=== PATIENT | female | born 1955 | race Caucasian/White ===

== ENCOUNTER → 2016-12-16 | Outpatient (CLI) | payer OTHER ==
--- NOTE | 2016-12-17 07:26 | MM ---
Reason for exam: screening (asymptomatic). Last mammogram was performed 1 year and 5 months ago. History: Patient is postmenopausal, has history of ovarian cancer at age 36, and has history of other cancer at age 26. Physical Findings: A clinical breast exam by your physician is recommended on an annual basis and results should be correlated with mammographic findings. MG Screening Mammo w CAD Bilateral CC and MLO view(s) were taken. Prior study comparison: July 31, 2015, right breast MG 3d diag mammo w/cad RT. January 08, 2015, right breast MG work up mamm w CAD RT. The breast tissue is heterogeneously dense. This may lower the sensitivity of mammography. There is chronic nodularity in the left breast. No significant changes when compared with prior studies. ASSESSMENT: Benign, BI-RAD 2 RECOMMENDATION: Routine screening mammogram of both breasts in 1 year.
== END | disposition home or self-care (01) ==
LOC: RADMAMWWP 16:10
PROVIDERS: ATTEND Family Medicine
DX: Z12.31 Encounter for screening mammogram for malignant neoplasm of breast (principal)

== ENCOUNTER 2017-05-29 12:19 | Emergency (ER) | payer OTHER ==
--- NOTE | 2017-05-29 13:26 | ED ---
General Adult HPI - General Chief complaint: Dizziness Stated complaint: Dizziness Time Seen by Provider: 05/29/17 12:35 Source: patient, RN notes reviewed Mode of arrival: wheelchair Limitations: no limitations - History of Present Illness Initial comments: This is a 62-year-old female presents emergency Department complaining of dizziness for the last 3 days. Patient states first it wasn't the worst and it is slowly been improving. Patient states went to urgent care with a gave her amoxicillin and Antivert. Patient states the Antivert seems to be helping but she still dizzy and she is concerned about associated emergency department. Patient denies any headache patient denies any visual disorders patient denies any speech symptoms. Patient denies any numbness or weakness. Patient denies any chest pain palpitations difficulty breathing shortness of breath. Patient denies any recent fever chills or cough per patient denies any ear pain. Patient denies any decreased hearing or ringing in the ears that's newly acquired. Patient denies any recent injury or trauma. - Related Data Home Medications Medication Instructions Recorded Confirmed Amoxicillin 875 mg PO Q12HR 05/29/17 05/29/17 Meclizine [Antivert] 25 mg PO TID PRN 05/29/17 05/29/17 Naproxen [Naprosyn] 500 mg PO Q12HR PRN 05/29/17 05/29/17 Pravastatin Sodium [Pravachol] 20 mg PO HS 05/29/17 05/29/17 Ranitidine HCl [Zantac] 150 mg PO HS 05/29/17 05/29/17 Allergies Allergy/AdvReac Type Severity Reaction Status Date / Time OTC Cough Medication Allergy Rash/Hives Uncoded 05/29/17 12:39 Review of Systems ROS Statement: Those systems with pertinent positive or pertinent negative responses have been documented in the HPI. ROS Other: All systems not noted in ROS Statement are negative. Past Medical History Past Medical History: Hyperlipidemia History of Any Multi-Drug Resistant Organisms: None Reported Past Surgical History: Section, Hysterectomy, Tubal Ligation Additional Past Surgical History / Comment(s): bladder suspension Past Anesthesia/Blood Transfusion Reactions: No Reported Reaction Past Psychological History: No Psychological Hx Reported Smoking Status: Current every day smoker Past Alcohol Use History: None Reported Past Drug Use History: None Reported General Exam - General Exam Comments Initial Comments: GENERAL: Patient is well-developed and well-nourished. Patient is nontoxic and well- hydrated and is in mild distress. ENT: Neck is soft and supple. No significant lymphadenopathy is noted. Oropharynx is clear. Moist mucous membranes. Neck has full range of motion without eliciting any pain. Left ear is cerumen impacted EYES: The sclera were anicteric and conjunctiva were pink and moist. Extraocular movements were intact and pupils were equal round and reactive to light. Eyelids were unremarkable. PULMONARY: Unlabored respirations. Good breath sounds bilaterally. No audible rales rhonchi or wheezing was noted. CARDIOVASCULAR: There is a regular rate and rhythm without any murmurs gallops or rubs. ABDOMEN: Soft and nontender with normal bowel sounds. No palpable organomegaly was noted. There is no palpable pulsatile mass. SKIN: Skin is clear with no lesions or rashes and otherwise unremarkable. NEUROLOGIC: Patient is alert and oriented x3. Cranial nerves II through XII are grossly intact. Motor and sensory are also intact. Normal speech, volume and content. Symmetrical smile. MUSCULOSKELETAL: Normal extremities with adequate strength and full range of motion. No lower extremity swelling or edema. No calf tenderness. LYMPHATICS: No significant lymphadenopathy is noted PSYCHIATRIC: Normal psychiatric evaluation. Limitations: no limitations Course Vital Signs 05/29/17 12:35 Temperature 98.1 F Pulse Rate 66 Respiratory 18 Rate Blood Pressure 134/73 O2 Sat by Pulse 94 L Oximetry Medical Decision Making - Medical Decision Making EKG shows normal sinus rhythm at 60 bpm MD interval 152 QRS is 72 QT interval 388 QTC is 412 per patient's EKG shows no ST segment elevation or ST segment depression there are no T-wave abdomen is noted. CT brain shows no acute abnormality. Chest x-ray shows no acute abnormality. - Lab Data Result diagrams: 05/29/17 13:35 05/29/17 13:35 Lab Results 05/29/17 05/29/17 05/29/17 Range/Units 13:35 13:35 13:35 WBC 7.8 (3.8-10.6) k/uL RBC 4.77 (3.80-5.40) m/uL Hgb 14.7 (11.4-16.0) gm/dL Hct 44.0 (34.0-46.0) % MCV 92.2 (80.0-100.0) fL MCH 30.9 (25.0-35.0) pg MCHC 33.5 (31.0-37.0) g/dL RDW 13.9 (11.5-15.5) % Plt Count 268 (150-450) k/uL Neutrophils % 58 % Lymphocytes % 32 % Monocytes % 6 % Eosinophils % 2 % Basophils % 1 % Neutrophils # 4.6 (1.3-7.7) k/uL Lymphocytes # 2.5 (1.0-4.8) k/uL Monocytes # 0.4 (0-1.0) k/uL Eosinophils # 0.2 (0-0.7) k/uL Basophils # 0.1 (0-0.2) k/uL PT (9.0-12.0) sec INR (<1.2) APTT (22.0-30.0) sec Sodium 142 (137-145) mmol/L Potassium 4.2 (3.5-5.1) mmol/L Chloride 108 H (98-107) mmol/L Carbon Dioxide 22 (22-30) mmol/L Anion Gap 12 mmol/L BUN 15 (7-17) mg/dL Creatinine 0.64 (0.52-1.04) mg/dL Est GFR (MDRD) Af Amer >60 (>60 ml/min/1.73 sqM) Est GFR (MDRD) Non-Af >60 (>60 ml/min/1.73 sqM) Glucose 89 (74-99) mg/dL Calcium 9.8 (8.4-10.2) mg/dL Magnesium 2.2 (1.6-2.3) mg/dL Total Bilirubin 0.4 (0.2-1.3) mg/dL AST 19 (14-36) U/L ALT 34 (9-52) U/L Alkaline Phosphatase 107 (38-126) U/L Total Creatine Kinase 76 (30-135) U/L CK-MB (CK-2) 0.4 (0.0-2.4) ng/mL CK-MB (CK-2) Rel Index 0.5 Troponin I <0.012 (0.000-0.034) ng/mL Total Protein 8.2 (6.3-8.2) g/dL Albumin 4.6 (3.5-5.0) g/dL 05/29/17 Range/Units 13:35 WBC (3.8-10.6) k/uL RBC (3.80-5.40) m/uL Hgb (11.4-16.0) gm/dL Hct (34.0-46.0) % MCV (80.0-100.0) fL MCH (25.0-35.0) pg MCHC (31.0-37.0) g/dL RDW (11.5-15.5) % Plt Count (150-450) k/uL Neutrophils % % Lymphocytes % % Monocytes % % Eosinophils % % Basophils % % Neutrophils # (1.3-7.7) k/uL Lymphocytes # (1.0-4.8) k/uL Monocytes # (0-1.0) k/uL Eosinophils # (0-0.7) k/uL Basophils # (0-0.2) k/uL PT 10.6 (9.0-12.0) sec INR 1.0 (<1.2) APTT 26.2 (22.0-30.0) sec Sodium (137-145) mmol/L Potassium (3.5-5.1) mmol/L Chloride (98-107) mmol/L Carbon Dioxide (22-30) mmol/L Anion Gap mmol/L BUN (7-17) mg/dL Creatinine (0.52-1.04) mg/dL Est GFR (MDRD) Af Amer (>60 ml/min/1.73 sqM) Est GFR (MDRD) Non-Af (>60 ml/min/1.73 sqM) Glucose (74-99) mg/dL Calcium (8.4-10.2) mg/dL Magnesium (1.6-2.3) mg/dL Total Bilirubin (0.2-1.3) mg/dL AST (14-36) U/L ALT (9-52) U/L Alkaline Phosphatase (38-126) U/L Total Creatine Kinase (30-135) U/L CK-MB (CK-2) (0.0-2.4) ng/mL CK-MB (CK-2) Rel Index Troponin I (0.000-0.034) ng/mL Total Protein (6.3-8.2) g/dL Albumin (3.5-5.0) g/dL Disposition Clinical Impression: Vertigo Disposition: HOME SELF-CARE Condition: Good Instructions: Vertigo (ED) Additional Instructions: Patient should continue taking meclizine as prescribed. Referrals: Samuel Garza DO [Primary Care Provider] - 1-2 days Time of Disposition: 14:46
[2017-05-29 13:45] LABS: Basophils # (A) 0.1 k/uL (0-0.2); Basophils % (A) 1 %; CH 31.1; CHCM 33.9; Eosinophils # (A) 0.2 k/uL (0-0.7); Eosinophils % (A) 2 %; HDW 2.51; HGB 14.7 gm/dL (11.4-16.0); Luc # (Auto) 0.07; Luc % (Auto) 1; Lymphocytes # (A) 2.5 k/uL (1.0-4.8); Lymphocytes % (A) 32 %; MCH 30.9 pg (25.0-35.0); MCHC 33.5 g/dL (31.0-37.0); MCV 92.2 fL (80.0-100.0); Mean Platelet Volume 7.3; Monocytes # (A) 0.4 k/uL (0-1.0); Monocytes % (A) 6 %; Neutrophils # (A) 4.6 k/uL (1.3-7.7); Neutrophils % (A) 58 %; RBC 4.77 m/uL (3.80-5.40); RDW 13.9 % (11.5-15.5); WBC 7.8 k/uL (3.8-10.6)
[2017-05-29 13:55] LABS: Partial Thromboplastin Time 26.2 sec (22.0-30.0); Prothrombin Time 10.6 sec (9.0-12.0)
[2017-05-29 13:56] LABS: ALT 34 U/L (9-52); AST 19 U/L (14-36); Alkaline Phosphatase 107 U/L (38-126); Anion Gap 12 mmol/L; Blood Urea Nitrogen 15 mg/dL (7-17); Calcium 9.8 mg/dL (8.4-10.2); Carbon Dioxide 22 mmol/L (22-30); Chloride 108 mmol/L (98-107); Glucose 89 mg/dL (74-99); Magnesium 2.2 mg/dL (1.6-2.3); Non-African American GFR(MDRD) >60 (>60 ml/min/1.73 sqM); Potassium 4.2 mmol/L (3.5-5.1); Sodium 142 mmol/L (137-145); Total Bilirubin 0.4 mg/dL (0.2-1.3); Total Protein 8.2 g/dL (6.3-8.2)
--- NOTE | 2017-05-29 14:05 | CT ---
EXAMINATION TYPE: CT brain wo con DATE OF EXAM: 05/29/2017 COMPARISON: NONE HISTORY: drowsy feeling x [address] DLP: 995.5 mGycm Automated exposure control for dose reduction was used. FINDINGS: Central structures are midline. There is no evidence of hydrocephalus. No acute focal lesion, mass ef fect or midline shift is seen. I do not see evidence of intracranial blood. Visualized portions of the paranasal sinuses and mastoids are clear. IMPRESSION: NO ACUTE INTRACRANIAL ABNORMALITY.
[2017-05-29 14:10] LABS: Creatine Kinase 76 U/L (30-135)
--- NOTE | 2017-05-29 14:21 | XR ---
EXAMINATION TYPE: XR chest 2V DATE OF EXAM: 05/29/2017 COMPARISON: 03/18/2016 HISTORY: Dizziness TECHNIQUE: Frontal and lateral views of the chest are obtained. FINDINGS: There is no heart failure nor confluent pneumonic infiltrate. There is slight coarsening o f interstitial markings. There are small linear density at the left lung base. There are chest leads. Heart size is normal. IMPRESSION: Mild pulmonary fibrotic changes. Mild scarring or subsegmental atelectasis at the left l karla base. No significant change compared to old exam.
[2017-05-29 14:23] LABS: Creatine Kinase MB 0.4 ng/mL (0.0-2.4); Troponin I <0.012 ng/mL (0.000-0.034)
[2017-05-29 14:55] VITALS: BP 145/75; PULSE 65; RESP 20; TEMP 98.2
== END 2017-05-29 15:16 | disposition home or self-care (01) ==
LOC: EC 12:19
DX: R42 Dizziness and giddiness (principal); H61.22 Impacted cerumen, left ear; E78.5 Hyperlipidemia, unspecified; F17.200 Nicotine dependence, unspecified, uncomplicated; Z79.899 Other long term (current) drug therapy; Z88.8 Allergy status to other drugs, medicaments and biological substances
CPT/HCPCS: 36415; 70450; 71020; 80053; 82550; 82553; 83735; 84484; 85025; 85610; 85730; 93005; 99284

== ENCOUNTER 2018-01-30 12:58 | Emergency (ER) | payer OTHER ==
[2018-01-30 13:14] VITALS: BP 140/73; PULSE 63; RESP 18; TEMP 98.2
--- NOTE | 2018-01-30 13:56 | ED ---
Lower Extremity Injury HPI - General Chief Complaint: Extremity Injury, Lower Stated Complaint: Knee Pain Time Seen by Provider: 01/30/18 13:16 Source: patient, RN notes reviewed Mode of arrival: wheelchair Limitations: no limitations - History of Present Illness Initial Comments: 63-year-old female presented from for left knee pain. Patient states that she' s had pain slight swelling over the last couple days but states that she injured it a few weeks ago by striking her knee on a table. Patient states that her see him relate this time. Patient denies any fever, chills, redness or rash to her knee. Patient has not seen an orthopedic doctor for this. - Related Data Home Medications Medication Instructions Recorded Confirmed Pravastatin Sodium [Pravachol] 20 mg PO DAILY 05/29/17 01/30/18 Acetaminophen [Tylenol] 325 - 650 mg PO Q4H PRN 01/30/18 01/30/18 Cholecalciferol [Vitamin D3] 1,000 unit PO DAILY 01/30/18 01/30/18 Omeprazole [PriLOSEC] 20 mg PO DAILY 01/30/18 01/30/18 Previous Rx's Medication Instructions Recorded Ibuprofen [Motrin] 600 mg PO Q8HR PRN #30 tab 01/30/18 Allergies Allergy/AdvReac Type Severity Reaction Status Date / Time OTC Cough Medication Allergy Rash/Hives Uncoded 05/29/17 12:39 Review of Systems ROS Statement: Those systems with pertinent positive or pertinent negative responses have been documented in the HPI. ROS Other: All systems not noted in ROS Statement are negative. Past Medical History Past Medical History: GERD/Reflux, Hyperlipidemia History of Any Multi-Drug Resistant Organisms: None Reported Past Surgical History: Section, Hysterectomy, Tubal Ligation Additional Past Surgical History / Comment(s): bladder suspension Past Anesthesia/Blood Transfusion Reactions: No Reported Reaction Past Psychological History: No Psychological Hx Reported Smoking Status: Current every day smoker Past Alcohol Use History: None Reported Past Drug Use History: None Reported General Exam Limitations: no limitations General appearance: alert, in no apparent distress Respiratory exam: Present: normal lung sounds bilaterally. Absent: respiratory distress, wheezes, rales, rhonchi, stridor Cardiovascular Exam: Present: regular rate, normal rhythm, normal heart sounds. Absent: systolic murmur, diastolic murmur, rubs, gallop, clicks Extremities exam: Present: other (Left knee full range of motion there is minimal swelling no warmth no erythema leg is neurovascularly intact there is mild pain with valgus stress, there is no laxity noted to the left knee) Skin exam: Present: warm, dry, intact, normal color. Absent: rash Course Vital Signs 01/30/18 13:11 Temperature 98.2 F Pulse Rate 63 Respiratory 18 Rate Blood Pressure 140/73 O2 Sat by Pulse 95 Oximetry Medical Decision Making - Medical Decision Making 63-year-old female has slight swelling to her knee but she has good range of motion. Patient had x-ray which shows joint effusion. Patient will be wrapped in Edmar wrap and follow-up with orthopedics. Patient given anti-inflammatories. Disposition Clinical Impression: Left knee pain, Effusion of knee joint, left Disposition: HOME SELF-CARE Condition: Stable Instructions: Knee Pain (ED) Additional Instructions: Please return to the Emergency Department if symptoms worsen or any other concerns. Prescriptions: Ibuprofen [Motrin] 600 mg PO Q8HR PRN #30 tab PRN Reason: Pain Is patient prescribed a controlled substance at d/c from ED?: No Referrals: Samuel Garza DO [Primary Care Provider] - 1-2 days Rodrigo Espinoza MD [STAFF PHYSICIAN] - 1-2 days Time of Disposition: 14:33
--- NOTE | 2018-01-30 14:12 | XR ---
EXAMINATION TYPE: XR knee complete LT DATE OF EXAM: 01/30/2018 COMPARISON: NONE HISTORY: None TECHNIQUE: 63 year-old female chronic left knee pain FINDINGS: Mild degenerative spurring in the medial and patellofemoral compartments. There is a small knee joint effusion demonstrated. Extensor mechanism is intact. No acute fracture or dislocation. IMPRESSION: Mild degenerative change medial and patellofemoral compartments. No acute osseous abnormality seen. T here is a small joint effusion. This is nonspecific. If concern for internal derangement or occult os seous injury, MRI can be considered.
== END 2018-01-30 14:40 | disposition home or self-care (01) ==
LOC: EC 12:58
DX: M25.462 Effusion, left knee (principal); M25.562 Pain in left knee; K21.9 Gastro-esophageal reflux disease without esophagitis; E78.5 Hyperlipidemia, unspecified; F17.200 Nicotine dependence, unspecified, uncomplicated; Z79.899 Other long term (current) drug therapy; Z88.8 Allergy status to other drugs, medicaments and biological substances; W22.8XXA Striking against or struck by other objects, initial encounter
CPT/HCPCS: 99283

== ENCOUNTER 2018-09-13 17:28 | Emergency (ER) | payer OTHER ==
[2018-09-13 18:08] VITALS: TEMP 97.9
[2018-09-13] MEDS ORDERED: DIAZEPAM 5 MG/ML 2 ML INJ IVP STA (18:31)
[2018-09-13] MEDS ORDERED: ONDANSETRON 4 MG/2 ML VIAL IVP STA (18:31)
[2018-09-13] MEDS ORDERED: SODIUM CHLORIDE 0.9% 1,000 ML IV STA (18:31)
--- NOTE | 2018-09-13 18:35 | ED ---
Dizziness HPI - General Chief Complaint: Dizziness Stated Complaint: Dizzy Time Seen by Provider: 09/13/18 18:12 Source: patient, family Mode of arrival: ambulatory Limitations: no limitations - History of Present Illness Initial Comments: Patient is a 63-year-old female who presents to the emergency department with complaint of dizziness. Patient states that approximately 2 hours ago she had sudden onset of vertiginous symptoms. She has a history of similar in the past. Her symptoms are worse when she lays flat and moves positions. States that her symptoms are better with rest. She denies any associated headaches, vision changes, unilateral numbness or weakness or paresthesias. She denies any confusion, slurred speech or facial droop. She denies slow onset. Denies chest pain or shortness of breath. No hearing changes. Denies any recent upper respiratory infections. No nasal congestion, sore throat or ear pain. She denies a cough. No history of cardiac disease. No recent head trauma. Denies neck pain. No chiropractic manipulations of the neck. Last time this happened to her she did present to the emergency department and they "cleaned out her ears." - Related Data Home Medications Medication Instructions Recorded Confirmed Omeprazole [PriLOSEC] 20 mg PO DIRECTED 01/30/18 09/13/18 Multivitamin,Therapeutic [Thera] 1 tab PO DAILY 09/13/18 09/13/18 Previous Rx's Medication Instructions Recorded Meclizine [Antivert] 25 mg PO TID PRN #15 tab 09/13/18 Allergies Allergy/AdvReac Type Severity Reaction Status Date / Time OTC Cough Medication Allergy Rash/Hives Uncoded 09/13/18 18:08 Review of Systems ROS Statement: Those systems with pertinent positive or pertinent negative responses have been documented in the HPI. ROS Other: All systems not noted in ROS Statement are negative. Past Medical History Past Medical History: GERD/Reflux, Hyperlipidemia, Thyroid Disorder History of Any Multi-Drug Resistant Organisms: None Reported Past Surgical History: Section, Hysterectomy, Tubal Ligation Additional Past Surgical History / Comment(s): bladder suspension Past Anesthesia/Blood Transfusion Reactions: No Reported Reaction Past Psychological History: No Psychological Hx Reported Smoking Status: Current every day smoker Past Alcohol Use History: None Reported Past Drug Use History: None Reported General Exam Limitations: no limitations General appearance: alert, in no apparent distress Head exam: Present: atraumatic, normocephalic Eye exam: Present: normal appearance, PERRL, EOMI. Absent: scleral icterus, conjunctival injection Pupils: Present: normal accommodation ENT exam: Present: normal exam, normal oropharynx, mucous membranes moist, TM's normal bilaterally, normal external ear exam, other (No cerumen impaction) Neck exam: Present: normal inspection, full ROM. Absent: lymphadenopathy, thyromegaly Respiratory exam: Present: normal lung sounds bilaterally. Absent: respiratory distress, wheezes, rales, rhonchi Cardiovascular Exam: Present: regular rate, normal rhythm, normal heart sounds. Absent: systolic murmur, diastolic murmur, rubs, gallop GI/Abdominal exam: Present: soft, normal bowel sounds. Absent: tenderness, guarding Extremities exam: Present: normal inspection Back exam: Present: normal inspection, full ROM Neurological exam: Present: alert, oriented X3, CN II-XII intact, normal gait, reflexes normal, other (Cranial nerves II through XII are intact. Face is symmetric, tongue is midline, speech is clear. No pronator drift and no truncal ataxia. No dysdiadochokinesia. Finger to nose is symmetric bilaterally without dysmetria. Patient is ambulatory without difficulty with negative Kernig's and negative Brudzinski's. Positive Lluvia-Hallpike). Absent: motor sensory deficit Psychiatric exam: Present: normal affect, normal mood Skin exam: Present: warm, dry, intact Course Vital Signs 09/13/18 09/13/18 18:03 19:57 Temperature 97.9 F Pulse Rate 63 60 Respiratory 16 18 Rate Blood Pressure 155/80 153/72 O2 Sat by Pulse 98 95 Oximetry - Reevaluation(s) Reevaluation #1: The patient was reevaluated and has had improvement in her symptoms. She is requesting to go home. 09/13/18 20:15 EKG Findings - EKG Results: EKG: WNL, sinus rhythm, normal axis, normal QRS Medical Decision Making - Medical Decision Making The patient was seen by myself. She was placed in room 15. She was hooked up to continuous pulse ox and cardiac monitoring. A 12-lead EKG was performed which demonstrated a normal sinus rhythm. We did obtain IV access. The patient was given 5 mg IV of Valium, 1 L bolus of 0.9% normal saline and 4 mg of Zofran IV. I recommended laboratory studies as well as a CT of the patient' s brain. She does not demonstrate any signs of ataxia or focal neurologic deficits at this time and so CT angios of the head and neck are not performed. I also recommended a chest x-ray. Upon return of the results we did discuss with the patient. She is reevaluated and states that she has had improvement in her dizziness. I did discuss the diagnosis, differential diagnosis and treatment options. The patient is requesting a urinalysis to be run. I did send a specimen which demonstrated no signs of infection. She is requesting to go home at this time. The patient will be discharged home and given a prescription for Antivert. She is to take the medications as directed. She needs to follow-up with her primary care physician within 2-4 days. I also provided her with information regarding an ENT as I do feel that she is suffering from peripheral vertigo. I did inform her if she has any new or worsening symptoms that she needs to return to the emergency department. Patient was in agreement. Plan she was discharged in stable condition - Differential Diagnosis BPPV, peripheral vertigo, nausea - Lab Data Result diagrams: 09/13/18 19:08 09/13/18 19:08 Lab Results 09/13/18 09/13/18 09/13/18 Range/Units 19:08 19:08 19:08 WBC 7.2 (3.8-10.6) k/uL RBC 4.41 (3.80-5.40) m/uL Hgb 13.8 (11.4-16.0) gm/dL Hct 40.3 (34.0-46.0) % MCV 91.4 (80.0-100.0) fL MCH 31.2 (25.0-35.0) pg MCHC 34.2 (31.0-37.0) g/dL RDW 13.4 (11.5-15.5) % Plt Count 228 (150-450) k/uL Neutrophils % 63 % Lymphocytes % 27 % Monocytes % 4 % Eosinophils % 3 % Basophils % 1 % Neutrophils # 4.6 (1.3-7.7) k/uL Lymphocytes # 2.0 (1.0-4.8) k/uL Monocytes # 0.3 (0-1.0) k/uL Eosinophils # 0.2 (0-0.7) k/uL Basophils # 0.1 (0-0.2) k/uL Sodium 141 (137-145) mmol/L Potassium 4.1 (3.5-5.1) mmol/L Chloride 106 (98-107) mmol/L Carbon Dioxide 26 (22-30) mmol/L Anion Gap 9 mmol/L BUN 13 (7-17) mg/dL Creatinine 0.59 (0.52-1.04) mg/dL Est GFR (CKD-EPI)AfAm >90 (>60 ml/min/1.73 sqM) Est GFR (CKD-EPI)NonAf >90 (>60 ml/min/1.73 sqM) Glucose 102 H (74-99) mg/dL Calcium 9.6 (8.4-10.2) mg/dL Total Bilirubin 0.5 (0.2-1.3) mg/dL Conjugated Bilirubin 0.0 (0.0-0.3) mg/dL Unconjugated Bilirubin 0.3 (0.0-1.1) mg/dL Delta Bilirubin 0.2 (0.0-0.2) mg/dL AST 25 (14-36) U/L ALT 35 (9-52) U/L Alkaline Phosphatase 124 (38-126) U/L Troponin I <0.012 (0.000-0.034) ng/mL Total Protein 7.8 (6.3-8.2) g/dL Albumin 4.6 (3.5-5.0) g/dL Lipase 97 (23-300) U/L TSH 1.750 (0.465-4.680) mIU/L - EKG Data -: EKG Interpreted by Ks EKG shows normal: sinus rhythm Rate: normal When compared to previous EKG there are: no significant change - Radiology Data Radiology results: report reviewed, image reviewed Chest x-ray demonstrates no acute findings. CT of the brain demonstrates no acute findings Disposition Clinical Impression: Benign paroxysmal positional vertigo Disposition: HOME SELF-CARE Condition: Good Instructions (If sedation given, give patient instructions): Dizziness (ED) Additional Instructions: Please take the Antivert as directed. Follow up with the primary care physician within 2-4 days. If your symptoms persist you may need to establish care with a neurologist. Your prescription was sent to [facility] Prescriptions: Meclizine [Antivert] 25 mg PO TID PRN #15 tab PRN Reason: Vertigo Is patient prescribed a controlled substance at d/c from ED?: No Referrals: Samuel Garza DO [Primary Care Provider] - 1-2 days Time of Disposition: 21:07
[2018-09-13 19:19] LABS: Basophils # (A) 0.1 k/uL (0-0.2); Basophils % (A) 1 %; Eosinophils # (A) 0.2 k/uL (0-0.7); Eosinophils % (A) 3 %; HCT 40.3 % (34.0-46.0); HGB 13.8 gm/dL (11.4-16.0); Lymphocytes % (A) 27 %; MCH 31.2 pg (25.0-35.0); MCHC 34.2 g/dL (31.0-37.0); MCV 91.4 fL (80.0-100.0); Monocytes # (A) 0.3 k/uL (0-1.0); Monocytes % (A) 4 %; Neutrophils # (A) 4.6 k/uL (1.3-7.7); Neutrophils % (A) 63 %; Platelet Count 228 k/uL (150-450); RBC 4.41 m/uL (3.80-5.40); RDW 13.4 % (11.5-15.5); WBC 7.2 k/uL (3.8-10.6)
[2018-09-13 19:33] LABS: ALT 35 U/L (9-52); AST 25 U/L (14-36); Albumin 4.6 g/dL (3.5-5.0); Alkaline Phosphatase 124 U/L (38-126); Anion Gap 9 mmol/L; Bilirubin, Delta 0.2 mg/dL (0.0-0.2); Bilirubin,Unconjugated 0.3 mg/dL (0.0-1.1); Blood Urea Nitrogen 13 mg/dL (7-17); Calcium 9.6 mg/dL (8.4-10.2); Carbon Dioxide 26 mmol/L (22-30); Chloride 106 mmol/L (98-107); Glucose 102 mg/dL (74-99); Lipase 97 U/L (23-300); Potassium 4.1 mmol/L (3.5-5.1); Sodium 141 mmol/L (137-145); Total Bilirubin 0.5 mg/dL (0.2-1.3); Total Protein 7.8 g/dL (6.3-8.2)
--- NOTE | 2018-09-13 19:48 | XR ---
EXAMINATION TYPE: XR chest 2V DATE OF EXAM: 09/13/2018 COMPARISON: 05/29/2017 HISTORY: Dizziness TECHNIQUE: Frontal and lateral views of the chest are obtained. FINDINGS: There is some linear density at the left lung base. Heart size is normal. There is no hear t failure. Costophrenic angles are clear. Bony thorax appears intact. IMPRESSION: There is scarring and subsegmental atelectasis left lung base that is not significantly different than old exam. Normal heart.
--- NOTE | 2018-09-13 19:57 | CT ---
EXAMINATION TYPE: CT brain wo con DATE OF EXAM: 09/13/2018 COMPARISON: 05/29/2017 HISTORY: Dizziness CT DLP: FINDINGS: There is minimal cerebral atrophy. There is no mass effect nor midline shift. There is no sign of int racranial hemorrhage. The calvarium is intact. mGycm Automated exposure control for dose reduction was used. Impression Mild atrophy. No acute intracranial abnormality. No change.
[2018-09-13 20:55] LABS: Amorphous Sediment,Urine Rare /hpf; Appearance,Urine Clear (Clear); Bilirubin,Urine Negative (Negative); Blood,Urine Negative (Negative); Color,Urine Light Yellow; Glucose,Urine (UA) Negative (Negative); Ketones,Urine Negative (Negative); Leukocyte Esterase,Urine Small (Negative); Mucus,Urine Rare /hpf; Nitrite,Urine Negative (Negative); Protein,Urine Negative (Negative); RBC,Urine 1 /hpf (0-5); Specific Gravity,Urine 1.007 (1.001-1.035); Squamous Epithelial Cell,Urine 7 /hpf (0-4); Urobilinogen,Urine <2.0 mg/dL (<2.0); WBC,Urine 7 /hpf (0-5)
[2018-09-13 21:05] VITALS: BP 135/76; PULSE 59; RESP 181
== END 2018-09-13 21:22 | disposition home or self-care (01) ==
LOC: EC 17:28
DX: H81.10 Benign paroxysmal vertigo, unspecified ear (principal); H81.399 Other peripheral vertigo, unspecified ear; K21.9 Gastro-esophageal reflux disease without esophagitis; F17.200 Nicotine dependence, unspecified, uncomplicated; Z88.8 Allergy status to other drugs, medicaments and biological substances; Z79.899 Other long term (current) drug therapy
CPT/HCPCS: 99284; 96374; 96375; 96361; 36415; 93005; 80048; 80076; 84443; 83690; 84484; 85025; 81001; 71046; 70450; J3360; J2405

== ENCOUNTER → 2018-11-23 | Outpatient (CLI) | payer OTHER ==
--- NOTE | 2018-11-23 10:29 | US ---
EXAMINATION TYPE: US kidneys/renal and bladder DATE OF EXAM: 11/23/2018 COMPARISON: US CLINICAL HISTORY: R10.9 ABD PAIN. Pt states bilateral flank pain EXAM MEASUREMENTS: Right Kidney: 9.6 x 4.5 x 4.6 cm Left Kidney: 10.4 x 4.9 x 4.1 cm Post Void Residual Volume: 239.8 mL Right Kidney: Mild renal pelvis dilation that resolved after pt voided bladder, possible small echoge jeffry focus lower pole= 6mm Left Kidney: Appeared wnl Bladder: wnl Bilateral Jets seen: No Normal Post Void Residual: No IMPRESSION: 1. Mild right pelvocaliectasis with suspected 5 mm right renal calculus.
== END | disposition home or self-care (01) ==
LOC: RADUSWWP 09:52
PROVIDERS: ATTEND Family Medicine
DX: N28.89 Other specified disorders of kidney and ureter (principal); R10.9 Unspecified abdominal pain
CPT/HCPCS: 76770

== ENCOUNTER → 2019-01-15 | Outpatient (CLI) | payer OTHER ==
--- NOTE | 2019-01-15 19:47 | MR ---
EXAMINATION TYPE: MR knee LT wo con DATE OF EXAM: 01/15/2019 COMPARISON: None HISTORY: Lt knee pain S/P fall 3 mos ago TECHNIQUE: Multiplanar, multisequence imaging of the left knee is performed without IV contrast. FINDINGS: There is complete disruption of the anterior cruciate ligament. Posterior cruciate ligament intact. Lateral collateral ligament has a normal appearance. There is increased fluid surrounding the MCL. Fi bers appear to be maintained. No evidence of tear. Grade 1 strain. There is a complex tear involving the posterior horn and body of the medial meniscus. There is a simple-appearing tear involving the anterior horn of the lateral meniscus. Hypertrophic change and narrowing of the medial compartment knee joint and patellofemoral joint and a pattern compatible osteoarthritis. There is thinning of the articular cartilage of the medial compar tment joint space. There is a 1 cm area of marrow edema involving the medial femur and a rounded circ ular area of additional signal which could be related to reactive marrow edema with cystic change. Fo janice area of osteochondritis in the differential diagnosis no definite free fragment. There is a small amount of fluid in the suprapatellar bursa. Patellar and quadriceps tendons are inta ct. There is a 1 x 1 x 2.4 cm fluid collection along the medial compartment of the tibia which may be rel ated to fluid within the pes anserine bursa. IMPRESSION: 1. Complete ACL tear. 2. Complex tear posterior horn and body medial meniscus. 3. Osteoarthritis with changes of chondromalacia. 4. MCL sprain. 5. Simple tear anterior horn lateral meniscus 6. Bone contusion medial femur. Focal area of osteochondritis dissecans in the differential diagnosis . 7.pes anserine bursitis.
== END | disposition home or self-care (01) ==
LOC: RADMRIMAIN 18:18
PROVIDERS: ATTEND Family Medicine
DX: S83.512A Sprain of anterior cruciate ligament of left knee, initial encounter (principal); S83.242A Other tear of medial meniscus, current injury, left knee, initial encounter; S83.282A Other tear of lateral meniscus, current injury, left knee, initial encounter; M19.90 Unspecified osteoarthritis, unspecified site; M94.262 Chondromalacia, left knee; S70.12XA Contusion of left thigh, initial encounter; M93.262 Osteochondritis dissecans, left knee; S83.412A Sprain of medial collateral ligament of left knee, initial encounter

== ENCOUNTER 2019-03-22 22:17 | Emergency (ER) | payer OTHER ==
[2019-03-22 22:24] VITALS: RESP 18
[2019-03-22] MEDS ORDERED: DIPH,PERTUS(ACELL)TETVAC-LF 0.5 ML VIAL IM ONE (22:34)
[2019-03-22] MEDS ORDERED: LIDOCAINE 1% INJ 10MG/ML (20 ML MDV) SQ ONE (22:34)
--- NOTE | 2019-03-22 22:49 | ED ---
Wound/Laceration HPI - General Chief Complaint: Wound/Laceration Stated Complaint: Arm injury/Laceration Time Seen by Provider: 03/22/19 22:26 Source: patient Mode of arrival: ambulatory Limitations: no limitations - History of Present Illness Initial Comments: 64-year-old female patient presents to the emergency department today for evaluation of laceration to the left forearm. Patient states she was opening a box using a steam box tender and was on the phone at the same time when she slipped and cut her arm. Patient is able to get the bleeding under control. Denies any use of blood thinning medications. She is unsure when her last tetanus vaccine was given. Denies any numbness or tingling to the arm or hand. Denies any other injuries. Patient denies any headache, neck pain, back pain, chest pain, shortness of breath, dizziness, weakness, abdominal pain, nausea, vomiting, or difficulties with bowel movements or urination. - Related Data Home Medications Medication Instructions Recorded Confirmed Acetaminophen Tab [Tylenol Tab] 650 mg PO Q6H PRN 03/22/19 03/22/19 Allergies Allergy/AdvReac Type Severity Reaction Status Date / Time OTC Cough Medication Allergy Rash/Hives Uncoded 03/22/19 23:10 Review of Systems ROS Statement: Those systems with pertinent positive or pertinent negative responses have been documented in the HPI. ROS Other: All systems not noted in ROS Statement are negative. Past Medical History Past Medical History: GERD/Reflux, Hyperlipidemia, Thyroid Disorder History of Any Multi-Drug Resistant Organisms: None Reported Past Surgical History: Section, Hysterectomy, Tubal Ligation Additional Past Surgical History / Comment(s): bladder suspension Past Anesthesia/Blood Transfusion Reactions: No Reported Reaction Past Psychological History: No Psychological Hx Reported Smoking Status: Former smoker Past Alcohol Use History: None Reported Past Drug Use History: None Reported General Exam Limitations: no limitations General appearance: alert, in no apparent distress, other (This is a well- developed, well-nourished adult female patient in no acute distress. Vital signs upon presentation are temperature 97.8 degrees Fahrenheit, pulse 68, respirations 18, blood pressure 153/85, pulse ox 95% on room air) Respiratory exam: Present: normal lung sounds bilaterally. Absent: respiratory distress, wheezes, rales, rhonchi, stridor Cardiovascular Exam: Present: regular rate, normal rhythm, normal heart sounds. Absent: systolic murmur, diastolic murmur, rubs, gallop, clicks Extremities exam: Present: full ROM, normal capillary refill, other (There is 4cm laceration noted to the volar aspect of the left forearm. Adipose tissue exposed, no tendons or vessels visible. Skin is otherwise pink, warm, dry. Cap refills less than 3 seconds. Radial pulses 2+ and equal bilaterally.). Absent: normal inspection, tenderness, pedal edema, joint swelling, calf tenderness Neurological exam: Present: alert, oriented X3, CN II-XII intact Psychiatric exam: Present: normal affect, normal mood Skin exam: Present: warm, dry, intact, normal color. Absent: rash Course Vital Signs 03/22/19 03/22/19 22:20 23:34 Temperature 97.8 F 97.9 F Pulse Rate 68 62 Respiratory 18 18 Rate Blood Pressure 152/85 146/86 O2 Sat by Pulse 95 95 Oximetry Procedures - Laceration Laceration #1 Consent Obtained: verbal consent Indication: laceration Site: upper extremity (Left forearm) Size (cm): 4 Description: linear Depth: simple, single layer Anesthetic Used: lidocaine 1% Anesthesia Technique: local infiltration Amount (mls): 15 Pre-repair: irrigated extensively Type of Sutures: nylon Size of Sutures: 5-0 Number of Sutures: 8 Technique: simple, interrupted Patient Tolerated Procedure: well, no complications Medical Decision Making - Medical Decision Making 64-year-old female patient presents to the emergency department today for evaluation of laceration to the left forearm. Physical examination did reveal a 4 cm laceration with exposed adipose tissue but no tendon or muscle tissue was exposed. Neurovascular status was intact. Laceration was repaired as documented. She'll be discharged home with instructions regarding wound care, signs of infection, and suture removal timeframe. She is instructed to follow- up with her primary care physician for recheck in 1-2 days. Return parameters were discussed in detail. She verbalizes understanding and agrees with this plan. Disposition Clinical Impression: Laceration of left forearm Disposition: HOME SELF-CARE Condition: Good Instructions (If sedation given, give patient instructions): Care For Your Stitches (ED), Laceration (ED) Additional Instructions: Cleanse wound twice daily with warm water and antibacterial soap. Monitor for signs of infection including but not limited to redness, swelling, drainage of pus, fever, or chills. Return in 7 days to have the stitches removed. Follow up with your primary care physician for recheck in 1-2 days. Return to the emergency department immediately for any new, worsening, or concerning symptoms. Is patient prescribed a controlled substance at d/c from ED?: No Referrals: Piotr Mcmahon MD [Primary Care Provider] - 1-2 days Time of Disposition: 23:26
[2019-03-22 23:35] VITALS: BP 146/86; PULSE 62; TEMP 97.9
== END 2019-03-22 23:35 | disposition home or self-care (01) ==
LOC: EC 22:17
DX: S51.812A Laceration without foreign body of left forearm, initial encounter (principal); Z23 Encounter for immunization; Z88.8 Allergy status to other drugs, medicaments and biological substances; Z87.891 Personal history of nicotine dependence; Z98.51 Tubal ligation status; W26.8XXA Contact with other sharp object(s), not elsewhere classified, initial encounter; Y93.89 Activity, other specified
CPT/HCPCS: 90715; 99282; 12002; 90471; J2001

== ENCOUNTER 2019-12-19 17:09 | Emergency (ER) | payer OTHER ==
[2019-12-19 17:22] VITALS: TEMP 98.4
[2019-12-19] MEDS ORDERED: KETOROLAC 60 MG/2 ML VIAL IM STA (18:00)
--- NOTE | 2019-12-19 18:06 | ED ---
General Adult HPI - General Chief complaint: Recheck/Abnormal Lab/Rx Stated complaint: All over pain Time Seen by Provider: 12/19/19 17:31 Source: patient Mode of arrival: ambulatory Limitations: physical limitation - History of Present Illness Initial comments: Patient is a 64-year-old female, with history of arthritis, presenting to the emergency department with an increase in pain in her joints that started this morning. Patient states she's been diagnosed with arthritis and did have a trial of Naprosyn for her pain. Patient states today she woke up at a hard time moving around and she thinks the weather is causing increase in her pain. She is having trouble in both of her hands, shoulders, elbows, knees. She denies any recent falls or trauma. She states she has had arthritis for a while and sometimes gets flareups like this. She states she is out of her Naprosyn medication. She denies any recent fever, chills, nausea, vomiting. She denies any other complaints at this time. Upon arrival to the ER, her vital signs are stable. - Related Data Home Medications Medication Instructions Recorded Confirmed Acetaminophen Tab [Tylenol Tab] 650 mg PO Q6H PRN 03/22/19 03/22/19 Previous Rx's Medication Instructions Recorded Naproxen 500 mg PO BID 10 Days #20 tablet 12/19/19 predniSONE 10 mg PO BID 5 Days #10 tab 12/19/19 Allergies Allergy/AdvReac Type Severity Reaction Status Date / Time OTC Cough Medication Allergy Rash/Hives Uncoded 12/19/19 17:22 Review of Systems ROS Statement: Those systems with pertinent positive or pertinent negative responses have been documented in the HPI. ROS Other: All systems not noted in ROS Statement are negative. Past Medical History Past Medical History: GERD/Reflux, Hyperlipidemia, Thyroid Disorder History of Any Multi-Drug Resistant Organisms: None Reported Past Surgical History: Section, Hysterectomy, Tubal Ligation Additional Past Surgical History / Comment(s): bladder suspension Past Anesthesia/Blood Transfusion Reactions: No Reported Reaction Past Psychological History: No Psychological Hx Reported Smoking Status: Former smoker Past Alcohol Use History: None Reported Past Drug Use History: None Reported General Exam - General Exam Comments Initial Comments: GENERAL: Well-appearing, well-nourished and in no acute distress. HEAD: Atraumatic, normocephalic. EYES: Pupils equal round and reactive to light, extraocular movements intact, sclera anicteric, conjunctiva are normal. ENT: TMs normal, nares patent, oropharynx clear without exudates. Moist mucous membranes. NECK: Normal range of motion, supple without lymphadenopathy or JVD. LUNGS: Breath sounds clear to auscultation bilaterally and equal. No wheezes rales or rhonchi. HEART: Regular rate and rhythm without murmurs, rubs or gallops. ABDOMEN: Soft, nontender, normoactive bowel sounds. No guarding, no rebound. No masses appreciated. : Deferred EXTREMITIES: Normal range of motion, no pitting or edema. No clubbing or cyanosis. Patient is complaining of pain in every single one of her joints. No signs of overlying erythema or infection. NEUROLOGICAL: Normal speech, normal gait. PSYCH: Normal mood, normal affect. SKIN: Warm, Dry, normal turgor, no rashes or lesions noted. Limitations: physical limitation Course Vital Signs 12/19/19 12/19/19 12/19/19 17:20 17:22 18:22 Temperature 98.4 F Pulse Rate 75 68 Respiratory 18 20 20 Rate Blood Pressure 138/91 144/78 O2 Sat by Pulse 95 98 Oximetry 12/19/19 18:42 Temperature Pulse Rate 68 Respiratory 20 Rate Blood Pressure 144/78 O2 Sat by Pulse 98 Oximetry Medical Decision Making - Medical Decision Making Patient is a 64-year-old female presenting with an acute flareup of arthritis in both hands, elbows, shoulders, knees. Her vitals are stable. Her exam is unremarkable, no signs of infection, swelling. No neuro deficits. I discussed with patient this is a an acute flareup of a chronic issue. She will be given Toradol today in the ER. I will refill her Naprosyn medication. Patient will follow up with her PCP. She is in agreement this plan of care. Patient stable for discharge. Return parameters were discussed with the patient she verbalized understanding. Disposition Clinical Impression: Arthritis, Joint pain Disposition: HOME SELF-CARE Condition: Stable Instructions (If sedation given, give patient instructions): Arthritis (ED) Additional Instructions: Please return to the Emergency Department if symptoms worsen or any other concerns. Follow-up with PCP. Prescriptions: Naproxen 500 mg PO BID 10 Days #20 tablet predniSONE 10 mg PO BID 5 Days #10 tab Is patient prescribed a controlled substance at d/c from ED?: No Referrals: Samuel Garza DO [Primary Care Provider] - 1-2 days
[2019-12-19 18:37] VITALS: RESP 20
[2019-12-19 18:38] VITALS: BP 144/78; PULSE 68
== END 2019-12-19 18:45 | disposition home or self-care (01) ==
LOC: EC 17:09
DX: M19.042 Primary osteoarthritis, left hand (principal); M19.041 Primary osteoarthritis, right hand; M19.022 Primary osteoarthritis, left elbow; M19.021 Primary osteoarthritis, right elbow; M19.012 Primary osteoarthritis, left shoulder; M19.011 Primary osteoarthritis, right shoulder; M17.0 Bilateral primary osteoarthritis of knee; Z88.8 Allergy status to other drugs, medicaments and biological substances; Z87.891 Personal history of nicotine dependence
CPT/HCPCS: 99283; 96372; J1885

== ENCOUNTER 2019-12-27 16:48 | Emergency (ER) | payer OTHER ==
[2019-12-27 16:54] VITALS: BP 151/78; PULSE 80; RESP 18; TEMP 98.4
[2019-12-27] MEDS ORDERED: predniSONE 10 MG TAB PO STA (17:37)
--- NOTE | 2019-12-27 17:37 | ED ---
Extremity Problem HPI - General Source: patient Mode of arrival: ambulatory Limitations: physical limitation <Edwin Meng - Last Filed: 12/27/19 22:14> <Era Tavares - Last Filed: 12/31/19 01:19> - General Chief complaint: Extremity Problem,Nontraumatic Stated complaint: Arthritis pain Time Seen by Provider: 12/27/19 17:02 - History of Present Illness Initial comments: Patient is 64-year-old female presenting to emergency Department with a chief complaint of joint pain. Patient reports history of arthritis and reports pain in bilateral upper and lower extremities. Patient reports she went to her primary care physician, Dr. Garza, who give her a prescription of 10 mg of prednisone twice a day. States she is scheduled to see him in 7 days but he would not refill her prescription. States she called his office with advised him to come to emergency department with her to get refill for her medication. Patient denies any other symptoms Or complaints. (Edwin Meng) - Related Data Home Medications Medication Instructions Recorded Confirmed Acetaminophen Tab [Tylenol Tab] 650 mg PO Q6H PRN 03/22/19 03/22/19 Previous Rx's Medication Instructions Recorded Naproxen 500 mg PO BID 10 Days #20 tablet 12/19/19 predniSONE 10 mg PO BID 5 Days #10 tab 12/19/19 predniSONE 10 mg PO DIRECTED #14 tab 12/27/19 Allergies Allergy/AdvReac Type Severity Reaction Status Date / Time OTC Cough Medication Allergy Rash/Hives Uncoded 12/27/19 16:54 Review of Systems ROS Other: All systems not noted in ROS Statement are negative. <Edwin Meng - Last Filed: 12/27/19 22:14> ROS Other: All systems not noted in ROS Statement are negative. <Era Tavares - Last Filed: 12/31/19 01:19> ROS Statement: Those systems with pertinent positive or pertinent negative responses have been documented in the HPI. Past Medical History Past Medical History: GERD/Reflux, Hyperlipidemia, Thyroid Disorder History of Any Multi-Drug Resistant Organisms: None Reported Past Surgical History: Section, Hysterectomy, Tubal Ligation Additional Past Surgical History / Comment(s): bladder suspension Past Anesthesia/Blood Transfusion Reactions: No Reported Reaction Past Psychological History: No Psychological Hx Reported Smoking Status: Former smoker Past Alcohol Use History: None Reported Past Drug Use History: None Reported <Edwin Meng - Last Filed: 12/27/19 22:14> General Exam Limitations: physical limitation General appearance: alert, in no apparent distress Head exam: Present: atraumatic, normocephalic, normal inspection Eye exam: Present: normal appearance, PERRL, EOMI Pupils: Present: normal accommodation ENT exam: Present: normal exam, normal oropharynx, mucous membranes moist Neck exam: Present: normal inspection, full ROM. Absent: tenderness Respiratory exam: Present: normal lung sounds bilaterally. Absent: respiratory distress, wheezes Cardiovascular Exam: Present: regular rate, normal rhythm, normal heart sounds Extremities exam: Present: normal inspection (Crepitus bilateral knees.), tenderness (Polyarthralgia), normal capillary refill, other (+2 ulnar and radial pulses bilaterally. +2 dorsalis pedis and posterior tibial bilaterally.). Absent: full ROM (Limited range of motion bilateral knees, hands, elbows, shoulders.) Back exam: Present: normal inspection, full ROM. Absent: tenderness Neurological exam: Present: alert, oriented X3 Psychiatric exam: Present: normal affect, normal mood Skin exam: Present: warm, dry, intact, normal color <Edwin Meng - Last Filed: 12/27/19 22:14> Course Vital Signs 12/27/19 16:51 Temperature 98.4 F Pulse Rate 80 Respiratory 18 Rate Blood Pressure 151/78 O2 Sat by Pulse 96 Oximetry Medical Decision Making <Edwin Meng - Last Filed: 12/27/19 22:14> <Era Tavares - Last Filed: 12/31/19 01:19> - Medical Decision Making Patient is 64-year-old female with history of arthritis presenting to emergency Department with a chief complaint of joint pain. On exam patient appears to have polyarthralgia and is only brought to the emergency department to obtain a refill of her prednisone. She has an appointment in 7 days to see her primary care physician. She was advised to come to the emergency department for prescription refills by her primary care physician's office. Return parameters thoroughly discussed the patient is understanding and agreeable. Case discussed with physician. (Edwin Meng) I was available for consultation in the emergency department. The history and physical exam were done by the midlevel provider. I was consulted for this patients care. I reviewed the case with the midlevel provider and based on their presentation of the patient, I agree with the assessment, medical decision making and plan of care as documented. Chart was dictated using [employer] dictation software. Attempts were made to correct any dictation errors however some typographical errors may persist. Patient was seen during a national state of emergency due to the Covid-19 pandemic. (Era Tavares) Disposition Is patient prescribed a controlled substance at d/c from ED?: No Time of Disposition: 17:59 <Edwin Meng - Last Filed: 12/27/19 22:14> <Era Tavares - Last Filed: 12/31/19 01:19> Clinical Impression: Polyarthralgia, Medication refill Disposition: HOME SELF-CARE Condition: Good Instructions (If sedation given, give patient instructions): Osteoarthritis (DC) Additional Instructions: Follow-up with her primary care. Return to emergency department if symptoms worsen. Prescriptions: predniSONE 10 mg PO DIRECTED #14 tab Referrals: Samuel Garza DO [Primary Care Provider] - 1-2 days
== END 2019-12-27 18:01 | disposition home or self-care (01) ==
LOC: EC 16:48
DX: M19.91 Primary osteoarthritis, unspecified site (principal); Z88.6 Allergy status to analgesic agent; Z79.899 Other long term (current) drug therapy; Z87.891 Personal history of nicotine dependence; Z76.0 Encounter for issue of repeat prescription
CPT/HCPCS: 99283; J7512

== ENCOUNTER 2020-01-12 13:09 | Emergency (ER) | payer OTHER ==
[2020-01-12 13:14] VITALS: RESP 18
[2020-01-12] MEDS ORDERED: KETOROLAC 30 MG/ML 1 ML VIAL IM STA (13:56)
[2020-01-12] MEDS ORDERED: ACET/COD 300 MG/30 MG STARTER PACK 6 TAB BTL PO STA ×2 (13:56→14:22)
--- NOTE | 2020-01-12 14:22 | ED ---
General Adult HPI - General Chief complaint: Extremity Injury, Upper Stated complaint: Hand Swelling Time Seen by Provider: 01/12/20 13:23 Source: patient, family, RN notes reviewed Mode of arrival: wheelchair Limitations: physical limitation - History of Present Illness Initial comments: 65-year-old female presents to the emergency department for bilateral hand pain. Patient states she is scheduled to see a military analyst on Tuesday. Patient states that she had testing done and was told she may have arthritis. States she gets flares or it is in her arms and hands. States today she is having a flare. She took Advil at home and it did not help. Patient states she was taking steroids for this with and her doctor told her she should not take a nymore steroids. She denies fevers or chills.Patient has no other complaints at this time including shortness of breath, chest pain, abdominal pain, nausea or vomiting, headache, or visual changes. - Related Data Home Medications Medication Instructions Recorded Confirmed Acetaminophen Tab [Tylenol Tab] 650 mg PO Q6H PRN 03/22/19 03/22/19 Previous Rx's Medication Instructions Recorded Naproxen 500 mg PO BID 10 Days #20 tablet 12/19/19 predniSONE 10 mg PO BID 5 Days #10 tab 12/19/19 predniSONE 10 mg PO DIRECTED #14 tab 12/27/19 Allergies Allergy/AdvReac Type Severity Reaction Status Date / Time OTC Cough Medication Allergy Rash/Hives Uncoded 01/12/20 13:14 Review of Systems ROS Statement: Those systems with pertinent positive or pertinent negative responses have been documented in the HPI. ROS Other: All systems not noted in ROS Statement are negative. Past Medical History Past Medical History: GERD/Reflux, Hyperlipidemia, Thyroid Disorder Additional Past Medical History / Comment(s): arthritis History of Any Multi-Drug Resistant Organisms: None Reported Past Surgical History: Section, Hysterectomy, Tubal Ligation Additional Past Surgical History / Comment(s): bladder suspension Past Anesthesia/Blood Transfusion Reactions: No Reported Reaction Past Psychological History: No Psychological Hx Reported Smoking Status: Former smoker Past Alcohol Use History: None Reported Past Drug Use History: None Reported General Exam Limitations: physical limitation General appearance: alert, in no apparent distress Head exam: Present: atraumatic, normocephalic, normal inspection Eye exam: Present: normal appearance, PERRL, EOMI. Absent: scleral icterus, conjunctival injection, periorbital swelling ENT exam: Present: normal exam, mucous membranes moist Neck exam: Present: normal inspection, full ROM. Absent: tenderness, meningismus, lymphadenopathy Respiratory exam: Present: normal lung sounds bilaterally. Absent: respiratory distress, wheezes, rales, rhonchi, stridor Cardiovascular Exam: Present: regular rate, normal rhythm, normal heart sounds. Absent: systolic murmur, diastolic murmur, rubs, gallop, clicks GI/Abdominal exam: Present: soft, normal bowel sounds. Absent: distended, tenderness, guarding, rebound, rigid Extremities exam: Present: other (Minimal edema of the both of the bilateral hands, full range of motion of the arms. There is no erythema.) Course Vital Signs 01/12/20 01/12/20 13:10 14:35 Temperature 98.8 F 98.5 F Pulse Rate 75 72 Respiratory 18 18 Rate Blood Pressure 156/82 152/80 O2 Sat by Pulse 95 95 Oximetry Medical Decision Making - Medical Decision Making Patient has chronic joint pain that she is currently receiving a workup for. Will be seeing a military analyst on Tuesday. Patient was given Toradol and told to take anti-inflammatories. She will take Tylenol 3 pain is severe but is aware not to drive or operate machinery while taking this. She will return here for any worsening symptoms. Disposition Clinical Impression: Polyarthralgia Disposition: HOME SELF-CARE Condition: Good Instructions (If sedation given, give patient instructions): Musculoskeletal Pain (ED) Additional Instructions: Please take Motrin for pain. Pain is severe take Tylenol 3. Follow-up with your appointment on Tuesday. Return here to the emergency room for any worsening symptoms. Is patient prescribed a controlled substance at d/c from ED?: No Referrals: Samuel Garza DO [Primary Care Provider] - 1-2 days Time of Disposition: 14:21
[2020-01-12 14:37] VITALS: BP 152/80; PULSE 72; TEMP 98.5
== END 2020-01-12 14:35 | disposition home or self-care (01) ==
LOC: EC 13:09
DX: M25.542 Pain in joints of left hand (principal); M25.541 Pain in joints of right hand; G89.29 Other chronic pain; Z88.8 Allergy status to other drugs, medicaments and biological substances; Z87.891 Personal history of nicotine dependence
CPT/HCPCS: 99283; 96372; J1885

== ENCOUNTER → 2020-10-02 | Outpatient (CLI) | payer OTHER ==
--- NOTE | 2020-10-03 10:58 | MM ---
Reason for exam: screening (asymptomatic). Last mammogram was performed 3 years and 10 months ago. History: Patient is postmenopausal, has history of ovarian cancer at age 36, and has history of other cancer at age 26. Physical Findings: A clinical breast exam by your physician is recommended on an annual basis and results should be correlated with mammographic findings. MG Screening Mammo w CAD Bilateral CC and MLO view(s) were taken. Prior study comparison: December 16, 2016, bilateral MG screening mammo w CAD. July 31, 2015, right breast MG 3d diag mammo w/cad RT. The breast tissue is heterogeneously dense. This may lower the sensitivity of mammography. Focal asymmetry upper outer right breast zone A. ASSESSMENT: Incomplete: need additional imaging evaluation, BI-RAD 0 RECOMMENDATION: Special view mammogram of the right breast. If lesion persists on supplemental views, image directed ultrasound is recommended. [facility] will attempt to contact patient to return for supplemental views and ultrasound if indicated.
== END | disposition home or self-care (01) ==
LOC: RADMAMWWP 07:53
PROVIDERS: ATTEND Family Medicine
DX: Z12.31 Encounter for screening mammogram for malignant neoplasm of breast (principal); Z78.0 Asymptomatic menopausal state
CPT/HCPCS: 77067

== ENCOUNTER → 2020-10-09 | Outpatient (CLI) | payer OTHER ==
--- NOTE | 2020-10-09 10:11 | MM ---
Reason for exam: additional evaluation requested from abnormal screening. Last mammogram was performed less than 1 month ago. History: Patient is postmenopausal, has history of ovarian cancer at age 36, and has history of other cancer at age 26. Physical Findings: Nurse did not find any significant physical abnormalities on exam. MG Work Up Mamm w CAD RT CC and MLO view(s) were taken of the right breast. Prior study comparison: October 02, 2020, bilateral MG screening mammo w CAD. December 16, 2016, bilateral MG screening mammo w CAD. The breast tissue is heterogeneously dense. This may lower the sensitivity of mammography. Finding: There is a typically benign 7 mm equal density (isodense), oval mass located 4 cm from the nipple in the right breast. These results were verbally communicated with the patient and result sheet given to the patient on 10/09/20. ASSESSMENT: Incomplete: need additional imaging evaluation, BI-RAD 0 RECOMMENDATION: Ultrasound of the right breast.
--- NOTE | 2020-10-09 10:12 | USB ---
Reason for exam: additional evaluation requested from abnormal screening. History: Patient is postmenopausal, has history of ovarian cancer at age 36, and has history of other cancer at age 26. US Breast Workup Limited RT Right limited breast ultrasound including focal area of concern, retroareolar and axilla demonstrates a 0.3 x 0.3 x 0.1cm oval lesion too small to characterize at 10 o'clock. These results were verbally communicated with the patient and result sheet given to the patient on 10/09/20. ASSESSMENT: Probably benign, BI-RAD 3 RECOMMENDATION: Follow-up diagnostic mammogram of the right breast in 6 months.
== END | disposition home or self-care (01) ==
LOC: RADMAMWWP 08:18
PROVIDERS: ATTEND Family Medicine
DX: R92.8 Other abnormal and inconclusive findings on diagnostic imaging of breast (principal); Z78.0 Asymptomatic menopausal state; Z85.43 Personal history of malignant neoplasm of ovary
CPT/HCPCS: 77065

== ENCOUNTER → 2021-12-24 | Outpatient (CLI) | payer MEDICARE, OTHER ==
--- NOTE | 2021-12-24 12:14 | XR ---
EXAMINATION TYPE: XR chest 2V DATE OF EXAM: 12/24/2021 COMPARISON: 09/13/2018 HISTORY: 66-year-old female [id number] TECHNIQUE: Frontal and lateral views FINDINGS: The heart is upper limits of normal in size. Hyperinflation. Some strandy atelectasis in lower lungs. Unable to exclude a 1.6 cm on a nodule at the right base. Otherwise, no consolidation or pleural eff usion. Mild to moderate degenerative disc disease midthoracic spine. IMPRESSION: COPD. Unable to exclude a 1.6 cm right basilar pulmonary nodule. CT of the chest to further evaluate.
== END | disposition home or self-care (01) ==
LOC: RADXRMAIN 08:55
PROVIDERS: ATTEND Internal Medicine Sleep Medicine
DX: J44.9 Chronic obstructive pulmonary disease, unspecified (principal)
CPT/HCPCS: 71046

== ENCOUNTER → 2022-02-18 | Outpatient (CLI) | payer MEDICARE, OTHER ==
[2022-02-18 10:26] LABS: African American GFR (CKD) >90 (>60 ml/min/1.73 sqM); Blood Urea Nitrogen 13 mg/dL (7-17); Non-African American GFR(CKD) >90 (>60 ml/min/1.73 sqM)
--- NOTE | 2022-02-18 12:59 | CT ---
EXAMINATION TYPE: CT chest w con CT DLP: 502 mGycm, Automated exposure control for dose reduction was used. DATE OF EXAM: 02/18/2022 11:28 AM COMPARISON: None CLINICAL INDICATION:Female, 67 years old with history of R91.1 SOLITARY PULMONARY NODULE; Solitary pu lmonary nodule TECHNIQUE: Multiple axial images were obtained through the chest. Sagittal and coronal reformats were created for review. Contrast used:70 mL of Isovue 300 with IV Contrast, none. Oral contrast used: none. FINDINGS: LUNGS/ PLEURA: Mild centrilobular emphysema changes are seen in the lung apices. Scattered calcified granulomas. Streaky atelectasis seen within lung bases.. There is no evidence for suspicious pulmonar y nodule. Right minor fissure intrafissural lymph node AIRWAY: Patent and unremarkable. HEART: The heart is mildly enlarged for size. There is coronary artery atherosclerosis changes. MEDIASTINUM: No gross evidence of adenopathy. VASCULATURE: No aortic aneurysm. Mild narrowing of the celiac axis secondary to calcified plaque. MUSCULOSKELETAL: No acute osseous abnormalities, mild multilevel disc degeneration changes are seen t hroughout the spine. Remote posterior left left rib 10 fracture. SOFT TISSUES/LYMPH NODES: Unremarkable. LOWER NECK: No significant findings. UPPER ABDOMEN: No significant findings. IMPRESSION: 1. No evidence for suspicious pulmonary nodule. 2. Mild narrowing of the celiac axis secondary to calcified plaque. 3. Mild COPD changes. 4. Mild cardiomegaly.
== END | disposition home or self-care (01) ==
LOC: RADCTMAIN 09:38
PROVIDERS: ATTEND Internal Medicine Sleep Medicine
DX: J44.9 Chronic obstructive pulmonary disease, unspecified (principal); I51.7 Cardiomegaly
CPT/HCPCS: 82565; 84520; 71260; 36415; Q9967

== ENCOUNTER 2022-04-05 19:49 | Emergency (ER) | payer MEDICARE, OTHER ==
[2022-04-05 19:59] VITALS: RESP 18; TEMP 98.1
--- NOTE | 2022-04-05 20:32 | CT ---
EXAMINATION TYPE: CT brain ector wo con DATE OF EXAM: 04/05/2022 COMPARISON: CT brain 09/13/2018 HISTORY: pain from fall CT DLP: 1404.6 mGycm Automated exposure control for dose reduction was used. Ventricles have normal size. There is no mass effect or midline shift. No sign of intracranial hemorr lucas. The calvarium is intact. No evidence of cerebral edema. There is normal aeration of the mastoid sinuses. Skull base is intact. The cervical vertebra have normal alignment. Disc spaces are fairly normal. Posterior elements are in tact. No compression fracture. No cervical paraspinal mass. IMPRESSION: Negative CT scan of the cervical spine. No fracture. Negative CT scan of the brain.
--- NOTE | 2022-04-05 20:46 | ED ---
Fall HPI - General Chief Complaint: Fall Stated Complaint: Fall,Head injury,Hip injury Time Seen by Provider: 04/05/22 20:00 Source: patient, family, RN notes reviewed Mode of arrival: ambulatory - History of Present Illness Initial Comments: This is a 67-year-old female who presents to the emergency department for a fall. Patient states that yesterday, she tripped over a wire at home and fell, landing on her right side. She is currently complaining of pain to the back and right side of her head and neck as well as the right rib cage area. She has been applying ice and taking ibuprofen with little relief. States that she wants to be evaluated to make sure that she has no fractures or other acute injuries. Denies any loss of consciousness, nausea, or vomiting. Denies any fevers, chills, sore throat, cough, dyspnea, palpitations, abdominal pain, nausea, vomiting, or diarrhea. MD Complaint: fall Onset/Timin -: days(s) Fall From: standing Fall Witnessed: yes, by family Place Fall Occurred: home Loss of Consciousness: none Location: head Context: tripped/slipped - Related Data Home Medications Medication Instructions Recorded Confirmed Acetaminophen Tab [Tylenol Tab] 650 mg PO Q6H PRN 03/22/19 03/22/19 Previous Rx's Medication Instructions Recorded Naproxen 500 mg PO BID 10 Days #20 tablet 12/19/19 predniSONE 10 mg PO BID 5 Days #10 tab 12/19/19 predniSONE 10 mg PO DIRECTED #14 tab 12/27/19 Allergies Allergy/AdvReac Type Severity Reaction Status Date / Time OTC Cough Medication Allergy Rash/Hives Uncoded 10/09/20 08:53 Review of Systems ROS Statement: Those systems with pertinent positive or pertinent negative responses have been documented in the HPI. ROS Other: All systems not noted in ROS Statement are negative. Past Medical History Past Medical History: GERD/Reflux, Hyperlipidemia, Thyroid Disorder Additional Past Medical History / Comment(s): arthritis History of Any Multi-Drug Resistant Organisms: None Reported Past Surgical History: Section, Hysterectomy, Tubal Ligation Additional Past Surgical History / Comment(s): bladder suspension Past Anesthesia/Blood Transfusion Reactions: No Reported Reaction Past Psychological History: No Psychological Hx Reported Past Alcohol Use History: None Reported Past Drug Use History: None Reported General Exam General appearance: alert, in no apparent distress Head exam: Present: atraumatic, normocephalic, normal inspection Eye exam: Present: normal appearance, PERRL, EOMI. Absent: scleral icterus, conjunctival injection, periorbital swelling Neck exam: Present: normal inspection. Absent: tenderness, meningismus, lymphadenopathy Respiratory exam: Present: normal lung sounds bilaterally. Absent: respiratory distress, wheezes, rales, rhonchi, stridor Cardiovascular Exam: Present: regular rate, normal rhythm, normal heart sounds. Absent: systolic murmur, diastolic murmur, rubs, gallop, clicks Neurological exam: Present: alert, oriented X3, CN II-XII intact Psychiatric exam: Present: normal affect, normal mood Skin exam: Present: warm, dry, intact, normal color. Absent: rash Course Vital Signs 04/05/22 04/05/22 19:54 21:33 Temperature 98.1 F Pulse Rate 78 61 Respiratory 18 18 Rate Blood Pressure 198/88 176/81 O2 Sat by Pulse 96 97 Oximetry Medical Decision Making - Medical Decision Making This is a 67-year-old female who presents to the emergency department for a fall. Computed tomography scan of the brain and c-spine as well as x-rays of the chest, right ribs, thoracic, and lumbar spine were obtained. All imaging revealed no acute irregularities. Patient advised that her symptoms are likely related to bruising. Signs and symptoms of concussions were also reviewed, as well as the risk for second impact syndrome if she were to acquire a subsequent head injury before fully recovering from the first one. Advised ibuprofen and Tylenol as needed for pain relief. She is also instructed to apply ice to the areas of pain for 10 to 15 minutes every 2-3 hours. Return precautions reviewed in depth, the patient is instructed to return to the emergency department with any new, worsening, or concerning symptoms. Patient verbalized understanding. This case was discussed in detail with the attending ED physician. Presentation, findings, and treatment plan discussed in detail as well. - Radiology Data Radiology results: report reviewed, image reviewed Disposition Clinical Impression: Fall Disposition: HOME SELF-CARE Instructions (If sedation given, give patient instructions): Concussion (ED), Rib Contusion (ED) Additional Instructions: Return to the emergency department with any new, worsening, or concerning symptoms. Alternate with ibuprofen and Tylenol as needed for pain relief. You may take up to 2400mg of Ibuprofen (800mg every 8 hours or 600mg every 6 hours) and 4000mg of Tylenol each day. Apply ice for 10-15 minutes every 2-3 hours to the areas of pain as well. Follow up with your primary care provider this week. Is patient prescribed a controlled substance at d/c from ED?: No Referrals: Samuel Garza DO [Primary Care Provider] - 1-2 days
--- NOTE | 2022-04-05 21:07 | XR ---
EXAMINATION TYPE: XR ribs RT w pa chest xray DATE OF EXAM: 04/05/2022 COMPARISON: 12/24/2021 HISTORY: Chest pain TECHNIQUE: 5 views FINDINGS: Heart is normal. There is small linear density at the lung bases. No pleural effusion. No p neumothorax. No rib fractures seen. IMPRESSION: Mild subsegmental atelectasis at the lung bases. No rib fracture.
--- NOTE | 2022-04-05 21:08 | XR ---
EXAMINATION TYPE: XR thoracic spine 2V DATE OF EXAM: 04/05/2022 COMPARISON: NONE HISTORY: Pain TECHNIQUE: 3 views FINDINGS: The thoracic vertebra have normal spacing and alignment. Posterior elements are intact. No paraspinal mass. No compression fracture. IMPRESSION: Negative thoracic spine exam. No fracture.
--- NOTE | 2022-04-05 21:09 | XR ---
EXAMINATION TYPE: XR lumbar spine 2 or 3V DATE OF EXAM: 04/05/2022 COMPARISON: NONE HISTORY: Pain TECHNIQUE: 3 views FINDINGS: The lumbar vertebra have normal alignment. Posterior element are intact. There is L2-3 mild spur formation and disc space narrowing. Sacroiliac joints are intact. IMPRESSION: No acute abnormality of the lumbar spine. No fracture.
[2022-04-05] MEDS ORDERED: IBUPROFEN 600 MG STARTER PACK 4 TAB BTL PO STA (21:27)
[2022-04-05] MEDS ORDERED: ACET/COD 300 MG/30 MG STARTER PACK 6 TAB BTL PO STA (21:27)
[2022-04-05 21:35] VITALS: BP 176/81; PULSE 61
== END 2022-04-05 21:47 | disposition home or self-care (01) ==
LOC: EC 19:49
DX: M54.2 Cervicalgia (principal); M54.9 Dorsalgia, unspecified; K21.9 Gastro-esophageal reflux disease without esophagitis; E78.5 Hyperlipidemia, unspecified; E07.9 Disorder of thyroid, unspecified; Z88.8 Allergy status to other drugs, medicaments and biological substances; Z79.899 Other long term (current) drug therapy; W01.0XXA Fall on same level from slipping, tripping and stumbling without subsequent striking against object, initial encounter
CPT/HCPCS: 70450; 72070; 72100; 72125; 99284

== ENCOUNTER 2022-05-15 09:49 | Emergency (ER) | payer MEDICARE, OTHER ==
[2022-05-15 10:02] VITALS: RESP 16; TEMP 98.2
[2022-05-15] MEDS ORDERED: PNEUMONIA PROTOCOL UTILIZED 1 EACH MISC PO PRN (13:02)
[2022-05-15] MEDS ORDERED: PIPERACILLIN-TAZOBACTAM 3.375 GM in SODIUM CHLORIDE 0.9% 100 ML IVPB STA (13:02)
--- NOTE | 2022-05-15 13:02 | XR ---
EXAMINATION TYPE: XR chest 2V DATE OF EXAM: 05/15/2022 12:10 PM COMPARISON: Chest radiographs from 12/24/2021 TECHNIQUE: XR chest 2V Frontal and lateral views of the chest. CLINICAL INDICATION:IBARRA's , dizzy FINDINGS: Lungs/Pleura: There is no evidence of pleural effusion, focal consolidation, or pneumothorax. Pulmonary vascularity: Unremarkable. Heart/mediastinum: Cardiomediastinal silhouette is unremarkable. Musculoskeletal: No acute osseous pathology. IMPRESSION: No acute cardiopulmonary disease/process.
--- NOTE | 2022-05-15 13:02 | CT ---
EXAMINATION TYPE: CT brain wo con CT DLP: 1135.4. mGycm, Automated exposure control for dose reduction was used. DATE OF EXAM: 05/15/2022 11:50 AM COMPARISON: 04/05/2022. CLINICAL INDICATION:C/O headache and dizziness. No H/O CVA/TIA TECHNIQUE: Brain: Axial CT images of the brain were obtained with coronal and sagittal reformats created and rev iewed. Contrast used: None. Oral contrast used: None. FINDINGS: Brain: Extra-axial spaces: No abnormal extra-axial fluid collections. Ventricular system: Within normal limits Cerebral parenchyma: No acute intraparenchymal hemorrhage or mass effect. The osuna-white junction is well differentiated. Cerebellum: Unremarkable. Mass effect: No evidence of midline shift. Intracranial vasculature: unremarkable Soft tissues: Normal. Calvarium/osseous structures: No depressed skull fracture. Paranasal sinuses and mastoid air cells: Mild scattered paranasal sinus disease. Visualized orbits: Orbital contents are intact. IMPRESSION: No acute intracranial process.
[2022-05-15 13:27] VITALS: BP 140/83; PULSE 70
[2022-05-15] MEDS ORDERED: AZITHROMYCIN 500 MG in SODIUM CHLORIDE 0.9% 250 ML IVPB SCH (14:00)
[2022-05-15 16:25] LABS: ALT 25 U/L (4-34); AST 32 U/L (14-36); African American GFR (CKD) >90 (>60 ml/min/1.73 sqM); Albumin 4.3 g/dL (3.5-5.0); Alkaline Phosphatase 117 U/L (38-126); Anion Gap 12 mmol/L; Blood Urea Nitrogen 14 mg/dL (7-17); Calcium 8.9 mg/dL (8.4-10.2); Carbon Dioxide 22 mmol/L (22-30); Chloride 106 mmol/L (98-107); Glucose 100 mg/dL (74-99); Non-African American GFR(CKD) >90 (>60 ml/min/1.73 sqM); Potassium 4.1 mmol/L (3.5-5.1); Sodium 140 mmol/L (137-145); Total Bilirubin 0.9 mg/dL (0.2-1.3)
[2022-05-15 16:31] LABS: Basophils % (A) 1 %; Eosinophils # (A) 0.2 k/uL (0-0.7); Eosinophils % (A) 4 %; HCT 40.2 % (34.0-46.0); HGB 13.8 gm/dL (11.4-16.0); Lymphocytes # (A) 1.2 k/uL (1.0-4.8); Lymphocytes % (A) 30 %; MCH 31.1 pg (25.0-35.0); MCHC 34.3 g/dL (31.0-37.0); MCV 90.5 fL (80.0-100.0); Mean Platelet Volume 8.2; Monocytes # (A) 0.3 k/uL (0-1.0); Monocytes % (A) 8 %; Neutrophils # (A) 2.2 k/uL (1.3-7.7); Neutrophils % (A) 55 %; Platelet Count 218 k/uL (150-450); RBC 4.44 m/uL (3.80-5.40); RDW 12.9 % (11.5-15.5)
[2022-05-15] MEDS ORDERED: PIPERACILLIN-TAZOBACTAM 3.375 GM in SODIUM CHLORIDE 0.9% 100 ML IVPB SCH (18:00)
== END 2022-05-15 13:28 ==
LOC: EC 09:49
DX: R42 Dizziness and giddiness (principal)
CPT/HCPCS: 36415; 70450; 71046; 80053; 84484; 85025; 99284

== ENCOUNTER → 2022-08-03 | Outpatient (CLI) | payer MEDICARE, OTHER | END | disposition home or self-care (01) | LOC: LABWHC1 15:00 | PROVIDERS: ATTEND Surgery Plastic and Reconstructive Surgery | DX: Z01.818 Encounter for other preprocedural examination (principal) | CPT/HCPCS: 36415; 93005 ==

== ENCOUNTER 2022-09-23 06:31 | Day surgery (SDC) | payer MEDICARE, OTHER ==
[~2022-09-23 06:31] MED LIST: DEXAMETHASONE SOD PHOSPHATE 4 MG/ML 1 ML VIAL IV ONE; HEPARIN SODIUM,PORCINE/PF 5,000 UNIT/0.5 ML SYRINGE SQ PRN; LACTATED RINGERS 1,000 ML IV SCH; LIDOCAINE 1% (10MG/ML) FOR IV START INTRADERMA PRN
[2022-09-23] MEDS ORDERED: ONDANSETRON 4 MG/2 ML VIAL IVP ONE ×2 (07:00→12:41)
[2022-09-23] MEDS ORDERED: MIDAZOLAM 2 MG/2 ML VIAL IV PRN (07:00)
[2022-09-23 07:23] LABS: Glucose,Whole Blood 104 mg/dL (70-110)
[2022-09-23] MEDS ORDERED: LIDOCAINE 2% INJ 20 MG/ML (2 ML VIAL) ONE (07:25)
[2022-09-23] MEDS ORDERED: NEOSTIGMINE 1 MG/ML 10 ML VIAL ONE (07:25)
[2022-09-23] MEDS ORDERED: GLYCOPYRROLATE 0.2 MG/ML 2 ML VIAL ONE (07:25)
[2022-09-23] MEDS ORDERED: fentaNYL (PF) 50 MCG/ML 2 ML AMP ONE (07:25)
[2022-09-23] MEDS ORDERED: PHENYLEPHRINE-0.9% NACL SYG 1,000 MCG/10 ML SYRINGE ONE (07:25)
[2022-09-23] MEDS ORDERED: SUCCINYLCHOLINE CHLORIDE 200 MG/10 ML VIAL IV ONE (07:25)
[2022-09-23] MEDS ORDERED: MIDAZOLAM 2 MG/2 ML VIAL ONE (07:25)
[2022-09-23] MEDS ORDERED: SUGAMMADEX SODIUM 200 MG/2 ML SDV IV ONE (07:25)
[2022-09-23] MEDS ORDERED: INDOCYANINE GREEN 25 MG VIAL IV ONE (07:25)
[2022-09-23] MEDS ORDERED: PROPOFOL 10 MG/ML 20 ML VIAL IV ONE (07:25)
[2022-09-23] MEDS ORDERED: ROCURONIUM 10 MG/ML (5 ML VIAL) IV ONE (07:25)
[2022-09-23] MEDS ORDERED: LIDOCAINE 4% LTA KIT (4 ML) TOPICAL ONE (07:25)
[2022-09-23 07:37] LABS: Basophils # (A) 0.1 k/uL (0-0.2); Basophils % (A) 1 %; Eosinophils # (A) 0.2 k/uL (0-0.7); Eosinophils % (A) 3 %; HCT 40.2 % (34.0-46.0); HGB 13.2 gm/dL (11.4-16.0); Lymphocytes # (A) 1.5 k/uL (1.0-4.8); Lymphocytes % (A) 29 %; MCH 29.9 pg (25.0-35.0); MCHC 32.8 g/dL (31.0-37.0); MCV 90.9 fL (80.0-100.0); Mean Platelet Volume 8.1; Monocytes # (A) 0.4 k/uL (0-1.0); Monocytes % (A) 7 %; Neutrophils % (A) 58 %; Platelet Count 205 k/uL (150-450); RBC 4.42 m/uL (3.80-5.40); RDW 13.3 % (11.5-15.5); WBC 5.2 k/uL (3.8-10.6)
--- NOTE | 2022-09-23 07:39 | P.GSHP ---
History of Present Illness H&P Date: 09/23/22 CHIEF COMPLAINT: Cholecystitis HISTORY OF PRESENT ILLNESS: The patient is a 67-year-old female who presents with history of epigastric including right upper quadrant abdominal pain. She underwent diagnostic studies for her gallbladder. Separately her clinical picture was consistent with cholecystitis. Now she presents for surgical intervention. PAST MEDICAL HISTORY: Please see list PAST SURGICAL HISTORY: Please see list MEDICATIONS: Please see list ALLERGIES: Please see list SOCIAL HISTORY: Please see list FAMILY HISTORY: Please see list REVIEW OF ORGAN SYSTEMS: CONSTITUTIONAL: No reports of fevers or chills. HEENT: Denies any troubles with the vision or hearing. HEMATOLOGIC: No personal or family history of DVTs or pulmonary emboli. SKIN: No skin cancer. PHYSICAL EXAM: VITAL SIGNS: Afebrile vital signs stable GENERAL: Well-developed pleasant in no acute distress. HEENT: No scleral icterus. Extraocular movements grossly intact. Moist buccal mucosa. NECK: Supple without lymphadenopathy. CHEST: Unlabored respirations. Equal bilateral excursions. CARDIOVASCULAR: Regular rate regular rhythm rhythm. Distal 2+ pulses. ABDOMEN: Soft, nondistended. Tender along the epigastrium and right upper quadrant. MUSCULOSKELETAL: No clubbing, cyanosis, or edema. NEURO: Cranial nerves II to XII within normal limits. No focal or lateralizing signs. PSYCH: Alert and oriented to person, place and time. SKIN: Well-perfused good skin turgor. ASSESSMENT: 1. Epigastric and right upper quadrant abdominal pain 2. Chronic cholecystitis 3. Symptomatic gallstones. PLAN: 1. Will need a robotic cholecystectomy possible open. Benefits and risks were described. 2. Heparin for DVT prophylaxis 5000 units. 3. Antibiotic prophylaxis. 4. CBC and CMP on day of procedure 5. Non-narcotic pre and post op pain management reviewed. 6. Indocyanine green for biliary imaging. 7. She is elevated risk due to co-morbidities Past Medical History Past Medical History: Asthma, Cancer, GERD/Reflux, Hyperlipidemia, Rheumatoid Arthritis (RA) Additional Past Medical History / Comment(s): hx uterine cancer long ago when a teen. comes in monthly for infusions for RA does not know name of med. ? hx of taking thyroid meds but not now. pt was abandoned at with twin and raised by another family. has issues with left foot turning in a times. recent bronchitis. abdominal pain History of Any Multi-Drug Resistant Organisms: None Reported Past Surgical History: Bladder Surgery, Section, Hysterectomy, Tubal Ligation Additional Past Surgical History / Comment(s): bladder suspension, colonoscopy Past Anesthesia/Blood Transfusion Reactions: No Reported Reaction Smoking Status: Former smoker - Past Family History Mother History Unknown: Yes Father History Unknown: Yes Additional Family Medical History / Comment(s): pt raised by another family Medications and Allergies Home Medications Medication Instructions Recorded Confirmed Type Albuterol Sulfate [Ventolin HFA] 2 puff INHALATION DIRECTED PRN 09/21/22 09/23/22 History Atorvastatin [Lipitor] 40 mg PO HS 09/21/22 09/23/22 History Cholecalciferol [Vitamin D3 (25 50 mcg PO DAILY 09/21/22 09/21/22 History Mcg = 1000 Iu)] Leflunomide [Arava] 20 mg PO DAILY 09/21/22 09/23/22 History Omeprazole 20 mg PO BID 09/21/22 09/23/22 History Allergies Allergy/AdvReac Type Severity Reaction Status Date / Time guaifenesin [From Robitussin] Allergy Itching Verified 09/23/22 07:05 ranitidine [From Zantac] Allergy disoriented Verified 09/23/22 07:05 Surgical - Exam Vital Signs Temp Pulse Resp BP Pulse Ox 97.8 F 77 16 214/98 95 09/23/22 06:55 09/23/22 06:55 09/23/22 06:55 09/23/22 06:55 09/23/22 06:55
[2022-09-23 08:33] LABS: ALT 21 U/L (4-34); AST 20 U/L (14-36); African American GFR (CKD) >90 (>60 ml/min/1.73 sqM); Albumin 3.2 g/dL (3.5-5.0); Alkaline Phosphatase 94 U/L (38-126); Anion Gap 7 mmol/L; Blood Urea Nitrogen 14 mg/dL (7-17); Carbon Dioxide 22 mmol/L (22-30); Chloride 111 mmol/L (98-107); Glucose 111 mg/dL (74-99); Non-African American GFR(CKD) >90 (>60 ml/min/1.73 sqM); Sodium 140 mmol/L (137-145); Total Bilirubin 0.6 mg/dL (0.2-1.3); Total Protein 5.6 g/dL (6.3-8.2)
[2022-09-23] MEDS ORDERED: BUPIVACAIN-EPI 0.25%-1:200,000 30 ML VIAL SQ ONE (08:39)
--- NOTE | 2022-09-23 09:10 | P.OP ---
Date of Procedure: 09/23/22 Description of Procedure: SURGEON: SONIA MONTEIRO MD PREOPERATIVE DIAGNOSES: 1. Symptomatic gallstone 2. Right upper quadrant abdominal pain 3. Hyperlipidemia 4. Chronic Obstructive pulmonary disease due to asthma 5. Gastroesophageal reflux disease 6. Rheumatoid arthritis 7. History of multiple pelvic surgery POSTOPERATIVE DIAGNOSES: 1. Symptomatic gallstone 2. Right upper quadrant abdominal pain 3. Hyperlipidemia 4. Chronic Obstructive pulmonary disease due to asthma 5. Gastroesophageal reflux disease 6. Rheumatoid arthritis 7. History of multiple pelvic surgery 8. Chronic cholecystitis 9. Severe midline epigastric adhesions due to previous surgery 10. Hepatomegaly OPERATION: 1. Robotic-assisted da Carol Xi laparoscopic lysis of adhesions over 50% of the case 2. Robotic-assisted da Carol Xi laparoscopic cholecystectomy, multiport with FIREFLY ESTIMATED BLOOD LOSS: 5 mL. SPECIMENS REMOVED: Gallbladder. COMPLICATIONS: None. OPERATIVE FINDINGS: 1. Moderate scarring of the midline, pelvis and epigastrium prohibiting proceeding with cholecystectomy. 2. Extensive lysis of adhesions requiring over 50% required INDICATIONS: The patient is a 67-year-old female who presents with symptomatic gallstones. Robotic assisted laparoscopic approach was described. Benefits and risks of the procedure including but not limited to bleeding, infection, injury to the biliary tree was described. Informed consent was obtained. DESCRIPTION OF PROCEDURE: Patient was brought to the operating room, placed in supine position. After general induction, the abdomen had been prepped and draped in standard sterile fashion. The robotic da Carol XI system was primed. After a timeout protocol was performed, the patient had been prepped and draped in standard sterile fashion. The patient was injected with indocyanine green. A 5 mm 0 degrees laparoscopic trocar entry was performed along the left upper quadrant. The abdomen insufflated to 15 mmHg pressure which was tolerated well. Diagnostic laparoscopy demonstrated no injury to bowel viscera or mesentery. Severe midline pelvic and epigastric adhesions were identified prohibiting placement of trochars for cholecystectomy. As a result, double stocking technique required with 2 additional 8 mm trochars along the left lateral abdominal wall. The robot was docked along the left lateral abdominal wall. I sat at the console. Three (3) port technique was used for extensive lysis of adhesions over 50% of the case using vessel sealer. Severe midline pelvic and epigastric adhesions were taken down to proceed with placement of additional trochars. Then re- scrubbed into the case. Next, three 8 mm robotic ports were placed along the right upper abdomen. The camera 8-mm port was maintained along the epigastrium. Please note that the ports were placed at least 10 to 15 cm away from the target anatomy of the gallbladder. The robot was docked along the left lateral abdomen. The patient was repositioned in reverse Trendelenburg position. Using a grasper for arm 3, a grasper for arm 4, including hook cautery for arm 1, the robotic system was docked and primed as described. Instruments were interchanged by the coding assistant including hook cautery, vessel sealer and clip appliers. I had sat at the console. The gallbladder was scarred with peritoneal adhesions. Lysis of adhesions was performed to free the gallbladder from the surrounding tissues. Next attention was brought to the infundibulum and cystic structures. The infundibulum and cystic duct were dissected free from surrounding tissues. The cystic duct was isolated. FIREFLY was used to identify the cystic artery and cystic structures. A critical view of safety was obtained. Large PLASTIC clips were used throughout the entire case. Using a clip analytics director, 2 clips were placed at the junction of the infundibulum and cystic duct. The cystic duct was divided between clips. Next, the cystic artery was similarly clipped and cauterized. A total of 3 clips were used. Electro-Bovie cautery was used to remove the gallbladder from the hepatic fossa. Hemostasis was checked and found to be adequate. The robot was undocked. I re-scrubbed into the case. Using a 10 mm Endo Catch bag via the left upper quadrant incision, the specimen was removed from the abdominal cavity. All pneumoperitoneum instruments were evacuated from the abdominal cavity. The incisions were reapproximated using 4-0 Monocryl in an interrupted subcuticular fashion. Fascial defects were less than 8 mm in size. Please note along the trocar sites, local anesthetic was placed as a field block prior to insertion of all instruments. Liquid glue was applied to the skin. At the end of the procedure needle, sponge, and instrument count had been verified correct by the surgical territory manager. The patient was transferred to postanesthesia care unit in stable condition. Intraoperative films were shared with the patient's family. Plan - Discharge Summary Discharge Rx Participant: No New Discharge Prescriptions: New Simethicone [Gas-X] 125 mg PO AC-TID PRN #20 capsule PRN Reason: Pain Ibuprofen [Motrin] 600 mg PO Q8HR PRN #30 tab PRN Reason: Pain Acetaminophen Tab [Tylenol Tab] 1,000 mg PO Q6HR PRN #30 tablet PRN Reason: Pain Continue Cholecalciferol [Vitamin D3 (25 Mcg = 1000 Iu)] 50 mcg PO DAILY Leflunomide [Arava] 20 mg PO DAILY Albuterol Sulfate [Ventolin HFA] 2 puff INHALATION DIRECTED PRN PRN Reason: Shortness Of Breath Omeprazole 20 mg PO BID Atorvastatin [Lipitor] 40 mg PO HS Discharge Medication List Albuterol Sulfate [Ventolin HFA] 2 puff INHALATION DIRECTED PRN 09/21/22 [History] Atorvastatin [Lipitor] 40 mg PO HS 09/21/22 [History] Cholecalciferol [Vitamin D3 (25 Mcg = 1000 Iu)] 50 mcg PO DAILY 09/21/22 [History] Leflunomide [Arava] 20 mg PO DAILY 09/21/22 [History] Omeprazole 20 mg PO BID 09/21/22 [History] Acetaminophen Tab [Tylenol Tab] 1,000 mg PO Q6HR PRN #30 tablet 09/23/22 [Rx] Ibuprofen [Motrin] 600 mg PO Q8HR PRN #30 tab 09/23/22 [Rx] Simethicone [Gas-X] 125 mg PO AC-TID PRN #20 capsule 09/23/22 [Rx] Follow up Appointment(s)/Referral(s): Sonia Monteiro MD [STAFF PHYSICIAN] - 09/28/22 ( TELEHEALTH - Dr calls you, please confirm your telephone number ) Patient Instructions/Handouts: Low Fat Diet (DC), *[facility] - Laparoscopic Cholecystectomy Discharge Instructions, *[facility] - Managing Your Pain After Surgery Without Opioids Activity/Diet/Wound Care/Special Instructions: Recommend low-fat diet for the next 2 days. No lifting over 10 pounds in 2 weeks until October 07. May shower. No bath tub soaks for two weeks until October 07. Diet as tolerated. Use Tylenol, simethicone and ibuprofen or Aleve scheduled for the next 24-48 hours for best pain relief. Use ice along incisions for today to prevent swelling. Discharge Disposition: HOME SELF-CARE
[2022-09-23 09:18] VITALS: TEMP 97.4
[2022-09-23] MEDS: HYDROmorphone 0.5 MG/0.5 ML SYRINGE IVP PRN ×2 (09:26→09:34)
[2022-09-23] MEDS ORDERED: ONDANSETRON 4 MG/2 ML VIAL ONE (12:37)
[2022-09-23 12:46] VITALS: PULSE 71
[2022-09-23 13:33] VITALS: BP 158/72; RESP 18
== END 2022-09-23 13:33 | disposition home or self-care (01) ==
LOC: OR 06:31
PROVIDERS: ATTEND Surgery Plastic and Reconstructive Surgery
DX: K80.10 Calculus of gallbladder with chronic cholecystitis without obstruction (principal); E78.5 Hyperlipidemia, unspecified; G89.18 Other acute postprocedural pain; J44.9 Chronic obstructive pulmonary disease, unspecified; K21.9 Gastro-esophageal reflux disease without esophagitis; M06.9 Rheumatoid arthritis, unspecified; Z85.42 Personal history of malignant neoplasm of other parts of uterus; Z87.891 Personal history of nicotine dependence
CPT/HCPCS: 88304; 80053; 85025; 47563; 64488; J2250; J0330; J1100; J2710; J0690; J2405; J3010; J2370; J2704; J1170; J1644; J2001

== ENCOUNTER 2023-01-02 09:08 | Emergency (ER) | payer MEDICARE, OTHER ==
[2023-01-02 09:23] VITALS: PULSE 72; TEMP 97.7
--- NOTE | 2023-01-02 09:55 | XR ---
EXAMINATION TYPE: XR Hip RT and AP Pelvis DATE OF EXAM: 01/02/2023 CLINICAL HISTORY: pain TECHNIQUE: AP and frogleg views of the right hip are obtained. Single view the pelvis is also submit renate. COMPARISON: None. FINDINGS: There is no acute fracture/dislocation evident. The joint space appears mildly narrowed. The overlying soft tissue appears unremarkable. IMPRESSION: 1. There is no acute fracture or dislocation. ICD 10 NO FRACTURE, INITIAL EVALUATION
--- NOTE | 2023-01-02 10:09 | ED ---
Lower Extremity Injury HPI - General Chief Complaint: Extremity Injury, Lower Stated Complaint: Right leg pain Time Seen by Provider: 01/02/23 09:29 Source: patient, RN notes reviewed Mode of arrival: ambulatory Limitations: no limitations - History of Present Illness Initial Comments: 68-year-old female presents emergency Department with chief complaint right groin, hip pain. This is been ongoing for last couple weeks patient is currently in physical therapy for this she states that she has good and bad days and that she is getting better but states that Eliquis bothersome again. Denies back pain denies bowel, bladder incontinence or retention no leg swelling. Patient had no prior x-rays she states she did have a fall this started her symptoms. - Related Data Home Medications Medication Instructions Recorded Confirmed Albuterol Sulfate [Ventolin HFA] 2 puff INHALATION DIRECTED PRN 09/21/22 09/23/22 Atorvastatin [Lipitor] 40 mg PO HS 09/21/22 09/23/22 Cholecalciferol [Vitamin D3 (25 50 mcg PO DAILY 09/21/22 09/21/22 Mcg = 1000 Iu)] Leflunomide [Arava] 20 mg PO DAILY 09/21/22 09/23/22 Omeprazole 20 mg PO BID 09/21/22 09/23/22 Previous Rx's Medication Instructions Recorded Acetaminophen Tab [Tylenol Tab] 1,000 mg PO Q6HR PRN #30 tablet 09/23/22 Ibuprofen [Motrin] 600 mg PO Q8HR PRN #30 tab 09/23/22 Simethicone [Gas-X] 125 mg PO AC-TID PRN #20 capsule 09/23/22 Ibuprofen [Motrin] 600 mg PO Q8HR PRN #20 tab 01/02/23 Allergies Allergy/AdvReac Type Severity Reaction Status Date / Time guaifenesin [From Robitussin] Allergy Itching Verified 01/02/23 09:23 ranitidine [From Zantac] Allergy disoriented Verified 01/02/23 09:23 Review of Systems ROS Statement: Those systems with pertinent positive or pertinent negative responses have been documented in the HPI. ROS Other: All systems not noted in ROS Statement are negative. Past Medical History Past Medical History: Asthma, Cancer, GERD/Reflux, Hyperlipidemia, Rheumatoid Arthritis (RA) Additional Past Medical History / Comment(s): hx uterine cancer long ago when a teen. comes in monthly for infusions for RA does not know name of med. ? hx of taking thyroid meds but not now. pt was abandoned at with twin and raised by another family. has issues with left foot turning in a times. recent bronchitis. abdominal pain History of Any Multi-Drug Resistant Organisms: None Reported Past Surgical History: Bladder Surgery, Section, Hysterectomy, Tubal Ligation Additional Past Surgical History / Comment(s): bladder suspension, colonoscopy Past Anesthesia/Blood Transfusion Reactions: No Reported Reaction Past Psychological History: No Psychological Hx Reported Smoking Status: Former smoker Past Alcohol Use History: None Reported Past Drug Use History: None Reported - Past Family History Mother History Unknown: Yes Father History Unknown: Yes Additional Family Medical History / Comment(s): pt raised by another family General Exam General appearance: alert, in no apparent distress Head exam: Present: atraumatic, normocephalic, normal inspection Neck exam: Present: normal inspection. Absent: tenderness, meningismus, lymphadenopathy Respiratory exam: Present: normal lung sounds bilaterally. Absent: respiratory distress, wheezes, rales, rhonchi, stridor Cardiovascular Exam: Present: regular rate, normal rhythm, normal heart sounds. Absent: systolic murmur, diastolic murmur, rubs, gallop, clicks Extremities exam: Present: other (Mild tenderness the right groin, there is pain with flexion extension neurovascular intact no leg swelling equal color and warmth) Back exam: Present: full ROM. Absent: tenderness, paraspinal tenderness, vertebral tenderness Neurological exam: Present: reflexes normal. Absent: motor sensory deficit Course Vital Signs 01/02/23 01/02/23 09:19 10:19 Temperature 97.7 F 97.7 F Pulse Rate 72 72 Respiratory 18 16 Rate Blood Pressure 127/73 125/89 O2 Sat by Pulse 96 97 Oximetry Medical Decision Making - Medical Decision Making Was pt. sent in by a medical professional or institution (, PA, CLOSET BUILDER, urgent ca re, hospital, or assisted...) When possible be specific @ -No Did you speak to anyone other than the patient for history (EMS, parent, family, police, friend...)? What history was obtained from this source @ -No Did you review nursing and triage notes (agree or disagree)? Why? @ -I reviewed and agree with nursing and triage notes Were old charts reviewed (outside hosp., previous admission, EMS record, old EKG, old radiological studies, urgent care reports/EKG's, assisted records)? Report findings @ -No old charts were reviewed Differential Diagnosis (chest pain, altered mental status, abdominal pain women, abdominal pain men, vaginal bleeding, weakness, fever, dyspnea, syncope, headache, dizziness, GI bleed, back pain, seizure, CVA, palpatations, mental health, musculoskeletal)? @ - hip fracture, right groin strain, hip sprain EKG interpreted by me (3pts min.). @ -None X-rays interpreted by me (1pt min.). @ -X-ray right hip and AP pelvis showed no acute fracture dislocation CT interpreted by me (1pt min.). @ -None done U/S interpreted by me (1pt. min.). @ -None done What testing was considered but not performed or refused? (CT, X-rays, U/S, labs)? Why? @ -None What meds were considered but not given or refused? Why? @ -None Did you discuss the management of the patient with other professionals (professionals i.e. , PA, CLOSET BUILDER, lab, RT, psych nurse, social research assistant, preparator, teacher, international first officer, director case management)? Give summary @ -No Was smoking cessation discussed for >3mins.? @ -No Was critical care preformed (if so, how long)? @ -No Were there social determinants of health that impacted care today? How? (Homelessness, low income, unemployed, alcoholism, drug addiction, transportation, low edu. Level, literacy, decrease access to med. care, [facility], rehab)? @ -No Was there de-escalation of care discussed even if they declined (Discuss DNR or withdrawal of care, Hospice)? DNR status @ -No What co-morbidities impacted this encounter? (DM, HTN, Smoking, COPD, CAD, Cancer, CVA, ARF, Chemo, Hep., AIDS, mental health diagnosis, sleep apnea, morbid obesity)? @ -None Was patient admitted / discharged? Hospital course, mention meds given and route, prescriptions, significant lab abnormalities, going to OR and other pertinent info. @ -Discharge patient has a right groin strain was started on anti- inflammatories and continue physical therapy and return for any worsening change in symptoms. Undiagnosed new problem with uncertain prognosis? @ -No Drug Therapy requiring intensive monitoring for toxicity (Heparin, Nitro, Insulin, Cardizem)? @ -No Were any procedures done? @ -No Diagnosis/symptom? @ -Right groin strain Acute, or Chronic, or Acute on Chronic? @ -Acute Uncomplicated (without systemic symptoms) or Complicated (systemic symptoms)? @ -Uncomplicated Side effects of treatment? @ -No Exacerbation, Progression, or Severe Exacerbation? @ -No Poses a threat to life or bodily function? How? (Chest pain, [place], [place], pneumonia, PE, COPD, DKA, ARF, appy, cholecystitis, CVA, Diverticulitis, Homicidal, Suicidal, threat to staff... and all critical care pts) @ -No Disposition Clinical Impression: Strain of right groin Disposition: HOME SELF-CARE Condition: Stable Instructions (If sedation given, give patient instructions): Groin Strain (ED) Additional Instructions: Please return to the Emergency Department if symptoms worsen or any other concerns. Prescriptions: Ibuprofen [Motrin] 600 mg PO Q8HR PRN #20 tab PRN Reason: Pain Is patient prescribed a controlled substance at d/c from ED?: No Referrals: Samuel Garza DO [Primary Care Provider] - 1-2 days Jose G Diaz DO [Doctor of Osteopathic Medicine] - 1-2 days Time of Disposition: 10:08
[2023-01-02 10:20] VITALS: BP 125/89; RESP 16
== END 2023-01-02 10:20 | disposition home or self-care (01) ==
LOC: EC 09:08
DX: S39.011A Strain of muscle, fascia and tendon of abdomen, initial encounter (principal); J45.909 Unspecified asthma, uncomplicated; E78.5 Hyperlipidemia, unspecified; K21.9 Gastro-esophageal reflux disease without esophagitis; Z79.899 Other long term (current) drug therapy; Z87.891 Personal history of nicotine dependence; Z88.8 Allergy status to other drugs, medicaments and biological substances; X58.XXXA Exposure to other specified factors, initial encounter
CPT/HCPCS: 73502; 99283

== ENCOUNTER → 2023-03-31 | Outpatient (CLI) | payer MEDICARE, OTHER ==
--- NOTE | 2023-04-01 09:10 | MM ---
Reason for Exam: Screening (asymptomatic). Last mammogram was performed 2 year(s) and 6 month(s) ago. Patient History: Menarche at age 13. First Full-Term at age 17. Left ovary removed at age 36. Right ovary removed at age 36. Hysterectomy at age 36. Postmenopausal. Other cancer, age 26. Ovarian cancer, age 36. Risk Values: Brii 5 year model risk: 1.2%. NCI Lifetime model risk: 4.2%. Prior Study Comparison: 12/16/2016 Bilateral Screening Mammogram, [facility]. 10/02/2020 Bilateral Screening Mammogram, [facility]. 10/09/2020 Right Diagnostic Mammogram, [facility]. Tissue Density: The breast tissue is heterogeneously dense. This may lower the sensitivity of mammography. Findings: Analyzed By CAD. There is no suspicious group of microcalcifications or new suspicious mass in either breast. Table chronic nodularity left breast. Overall Assessment: Benign, BI-RAD 2 Management: Screening Mammogram of both breasts in 1 year. . Patient should continue monthly self-breast exams. A clinical breast exam by your physician is recommended on an annual basis. This exam should not preclude additional follow-up of suspicious palpable abnormalities. Note on Brii scores and lifetime risk: 1. A Brii score greater than 3% is considered moderate risk. If this is the case, consider specialist referral to assess eligibility for a risk reducing agent. 2. If overall lifetime risk for the development of breast cancer is 20% or higher, the patient may qualify for future screening with alternating mammogram and breast MRI. Electronically signed and approved by: Azael Neely M.D. Radiologis
== END | disposition home or self-care (01) ==
LOC: RADMAMWWP 16:00
PROVIDERS: ATTEND Family Medicine
DX: Z12.31 Encounter for screening mammogram for malignant neoplasm of breast (principal); Z78.0 Asymptomatic menopausal state
CPT/HCPCS: 77063; 77067

== ENCOUNTER → 2024-01-02 | Outpatient (CLI) | payer MEDICARE, OTHER ==
--- NOTE | 2024-01-02 12:45 | XR ---
EXAMINATION TYPE: XR ankle complete bilateral DATE OF EXAM: 01/02/2024 COMPARISON: NONE HISTORY: Pain TECHNIQUE: Frontal, lateral and oblique images of the bilateral ankles are obtained. COMPARISON: None. FINDINGS: There is no acute fracture/dislocation evident. The joint spaces appear within normal ellison its. The overlying soft tissue appears unremarkable. IMPRESSION: There is no acute fracture or dislocation seen.
[2024-01-02 19:19] LABS: Basophils # (A) 0.07 X 10*3/uL (0.00-0.10); Basophils % (A) 1.2 %; Eosinophils # (A) 0.15 X 10*3/uL (0.04-0.35); Eosinophils % (A) 2.5 %; HCT 43.6 % (37.2-46.3); HGB 13.5 g/dL (12.0-15.0); Lymphocytes % (A) 27.2 %; MCH 29.3 pg (27.0-32.0); MCV 94.8 FL (80.0-97.0); Mean Platelet Volume 11.3 FL (9.5-12.2); Monocytes # (A) 0.55 X 10*3/uL (0.20-1.00); Monocytes % (A) 9.3 %; NRBC Per 100 WBC 0 X 10*3/uL (0.00-0.01); Neutrophils % (A) 59.5 %; Platelet Count 237 X 10*3/uL (140-440); RDW 13.4 % (11.5-14.5); WBC 5.89 X 10*3/uL (4.50-10.00)
[2024-01-02 19:46] LABS: BUN/Creat Ratio 19.33 Ratio (12.00-20.00); Blood Urea Nitrogen 11.6 mg/dL (9.0-27.0); Carbon Dioxide 23.7 mmol/L (21.6-31.8); Chloride 106 mmol/L (96-109); Glucose 101 mg/dL (70-110); Potassium 4.1 mmol/L (3.5-5.5); Sodium 141 mmol/L (135-145); Uric Acid 5.5 mg/dL (2.9-7.7)
[2024-01-02 19:47] LABS: ALT 19 U/L (8-44); AST 17 U/L (13-35); Albumin 4.5 g/dL (3.8-4.9); Albumin/Globulin Ratio 1.88 Ratio (1.60-3.17); Alkaline Phosphatase 155 U/L (41-126); Calcium 9.2 mg/dL (8.7-10.3); Globulin 2.4 g/dL (1.6-3.3); Total Bilirubin 0.5 mg/dL (0.3-1.2); Total Protein 6.9 g/dL (6.2-8.2)
== END | disposition home or self-care (01) ==
LOC: RADXRMAIN 11:55
PROVIDERS: ATTEND Physician Assistant
DX: M25.571 Pain in right ankle and joints of right foot (principal); M25.572 Pain in left ankle and joints of left foot
CPT/HCPCS: 36415; 80053; 84550; 85025

== ENCOUNTER → 2024-02-15 | Outpatient (CLI) | payer MEDICARE, OTHER ==
--- NOTE | 2024-03-15 09:08 | XR ---
EXAMINATION TYPE: XR Hip Complete 2 views RT DATE OF EXAM: 02/15/2024, dictated on 03/15/2024 due to downtime Comparison: None Clinical History: 69-year-old female worsening chronic PAIN Findings: There is [id number] degenerative change of the right hip characterized predominantly by degener ative spurring. Relative preservation of joint space. Vascular calcifications. Visualized right SI abena int and pubic symphysis appear intact. No acute fracture, subluxation, dislocation. Impression: [id number] right hip OA characterized predominantly by degenerative spurring. No acute osseous abnormality seen.
--- NOTE | 2024-03-15 10:08 | XR ---
EXAMINATION TYPE: XR lumbar spine 3V DATE OF EXAM: 03/15/2024 Comparison: 04/05/2022 Clinical History: 69-year-old female with worsening chronic pain Findings: 5 lumbar type vertebral bodies. Hypertrophic facet arthropathy lower lumbar spine. Degenerative grade 1 retrolisthesis L2-L3. Moderate degenerative disc disease L2-L3 and mild elsewhere throughout the l ower thoracic and lumbar spine. Vertebral body heights are preserved. Impression: 1. Hypertrophic facet arthropathy lower lumbar spine. 2. Degenerative grade 1 retrolisthesis L2-L3 with moderate degenerative disc disease here as well. 3. Mild degenerative disc disease elsewhere throughout the lower thoracic and lumbar spine. 4. No vertebral compression collapse.
== END | disposition home or self-care (01) ==
LOC: RADXRMAIN 15:11
PROVIDERS: ATTEND Family Medicine
DX: M16.11 Unilateral primary osteoarthritis, right hip (principal); M43.16 Spondylolisthesis, lumbar region; M47.816 Spondylosis without myelopathy or radiculopathy, lumbar region; M51.36 Other intervertebral disc degeneration, lumbar region; G89.29 Other chronic pain
CPT/HCPCS: 72100; 73502

== ENCOUNTER → 2024-04-02 | Outpatient (CLI) | payer OTHER ==
--- NOTE | 2024-04-02 10:20 | XR ---
EXAMINATION TYPE: XR chest 2V DATE OF EXAM: 04/02/2024 COMPARISON: 05/15/2022 INDICATION: Cough congestion TECHNIQUE: Frontal and lateral views of the chest are obtained. FINDINGS: The heart size is normal. The pulmonary vasculature is normal. Bibasilar infiltrates are present likely on the basis of subsegmental atelectasis. Developing pneumon ia should be considered. Follow-up can be formed as clinically indicated. IMPRESSION: 1. Mild bibasilar infiltrates. Correlate for atelectasis or pneumonia. [facility], , 04/02/2024 10:18 AM
== END | disposition home or self-care (01) ==
LOC: RADXRMAIN 09:50
PROVIDERS: ATTEND Family Medicine
DX: R05.9 Cough, unspecified
CPT/HCPCS: 71046

== ENCOUNTER → 2024-04-11 | Outpatient (CLI) | payer MEDICARE, OTHER ==
--- NOTE | 2024-04-11 09:26 | XR ---
EXAMINATION TYPE: XR chest 2V DATE OF EXAM: 04/11/2024 COMPARISON: 04/02/2024 HISTORY: Shortness of breath TECHNIQUE: Frontal and lateral views of the chest are obtained. FINDINGS: Scattered senescent parenchymal changes noted. Hyperinflation compatible with COPD. Right basilar infiltrate appears less conspicuous on today's study although does persist. Consider im proving infiltrate and short-term follow-up advised. No evidence for atelectasis. Heart size is stable. Mediastinal structures are stable and grossly unremarkable. No evidence for hilar prominence. Degenerative changes dorsal spine. IMPRESSION: 1. Right basilar infiltrate appears less conspicuous on today's study although does persist. Consider improving infiltrate and short-term follow-up advised. [facility], , 04/11/2024 9:24 AM
== END | disposition home or self-care (01) ==
LOC: RADXRMAIN 09:05
PROVIDERS: ATTEND Family Medicine
DX: R93.89 Abnormal findings on diagnostic imaging of other specified body structures
CPT/HCPCS: 71046

== ENCOUNTER → 2024-04-18 | Outpatient (CLI) | payer MEDICARE, OTHER ==
--- NOTE | 2024-04-18 11:34 | XR ---
EXAMINATION TYPE: XR chest 2V DATE OF EXAM: 04/18/2024 COMPARISON: 04/11/2024 HISTORY: Shortness of breath TECHNIQUE: Frontal and lateral views of the chest are obtained. FINDINGS: Scattered senescent parenchymal changes noted. Hyperinflation compatible with COPD. No evidence for infiltrate. No evidence for atelectasis. Heart size is stable. Mediastinal structures are stable and grossly unremarkable. No evidence for hilar prominence. Degenerative changes dorsal spine. IMPRESSION: 1. No evidence for acute pulmonary disease. [facility], , 04/18/2024 11:31 AM
== END | disposition home or self-care (01) ==
LOC: RADXRMAIN 10:05
PROVIDERS: ATTEND Family Medicine
CPT/HCPCS: 71046

== ENCOUNTER → 2024-05-03 | Outpatient (CLI) | payer MEDICARE, OTHER ==
[2024-05-03 20:09] LABS: Basophils # (A) 0.08 X 10*3/uL (0.00-0.10); Basophils % (A) 1.2 %; HCT 41.5 % (37.2-46.3); HGB 13.6 g/dL (12.0-15.0); Lymphocytes # (A) 2.01 X 10*3/uL (0.90-5.00); MCH 30.4 pg (27.0-32.0); MCHC 32.8 g/dL (32.0-37.0); MCV 92.6 FL (80.0-97.0); Mean Platelet Volume 10.2 FL (9.5-12.2); Monocytes # (A) 0.62 X 10*3/uL (0.20-1.00); Monocytes % (A) 9.2 %; NRBC Per 100 WBC 0 X 10*3/uL (0.00-0.01); Neutrophils # (A) 3.77 X 10*3/uL (1.80-7.70); Neutrophils % (A) 56.2 %; Platelet Count 254 X 10*3/uL (140-440); RBC 4.48 X 10*6/uL (4.10-5.20); RDW 13.6 % (11.5-14.5); WBC 6.71 X 10*3/uL (4.50-10.00)
[2024-05-03 23:34] LABS: ALT 20 U/L (8-44); AST 25 U/L (13-35); Albumin 4.4 g/dL (3.8-4.9); Albumin/Globulin Ratio 1.57 Ratio (1.60-3.17); Alkaline Phosphatase 147 U/L (41-126); Amylase 69 U/L (23-121); BUN/Creat Ratio 19.67 Ratio (12.00-20.00); Blood Urea Nitrogen 11.8 mg/dL (9.0-27.0); Calcium 9.5 mg/dL (8.7-10.3); Carbon Dioxide 24.8 mmol/L (21.6-31.8); Chloride 105 mmol/L (96-109); Globulin 2.8 g/dL (1.6-3.3); Glucose 85 mg/dL (70-110); Lipase 25 U/L (14-63); Sodium 141 mmol/L (135-145); Total Bilirubin 0.8 mg/dL (0.3-1.2); Total Protein 7.2 g/dL (6.2-8.2)
== END | disposition home or self-care (01) ==
LOC: LABWHC1 12:31
PROVIDERS: ATTEND Physician Assistant
DX: R10.9 Unspecified abdominal pain (principal)
CPT/HCPCS: 36415; 80053; 82150; 83690; 85025

== ENCOUNTER → 2024-05-03 | Outpatient (CLI) | payer MEDICARE, OTHER ==
--- NOTE | 2024-05-07 15:02 | XR ---
EXAMINATION TYPE: XR abdomen 2V DATE OF EXAM: 05/03/2024 HISTORY: Pain. Technique: 3 views of the abdomen are submitted. Comparison: None. Findings: There is no convincing evidence of pneumoperitoneum. The Bowel gas pattern is nonspecific and nonobstructive. No sizable air-fluid levels are seen. No mass effects are noted. No renal calcifications are identified. IMPRESSION: 1. Nonspecific nonobstructive bowel gas pattern [facility], , 05/03/2024 1:03 PM
== END | disposition home or self-care (01) ==
LOC: RADXRMAIN 11:36
PROVIDERS: ATTEND Family Medicine
DX: R10.9 Unspecified abdominal pain (principal)
CPT/HCPCS: 74019

== ENCOUNTER → 2024-09-03 | Outpatient (CLI) | payer MEDICARE, OTHER ==
--- NOTE | 2024-09-03 13:29 | XR ---
EXAMINATION TYPE: XR abdomen 2V DATE OF EXAM: 09/03/2024 1:23 PM COMPARISON: 05/03/2024 CLINICAL INDICATION: Female, 69 years old with history of R10.9 abdominal pain, TECHNIQUE: XR abdomen 2V view(s) obtained. FINDINGS: There is a normal bowel gas pattern. Mild fecal debris is present. No free air is evident. No differe ntial air-fluid levels are evident Psoas margins are normal. No organomegaly is present. IMPRESSION: 1. Unremarkable Abdomen [facility], , 09/03/2024 1:26 PM
== END | disposition home or self-care (01) ==
LOC: RADXRMAIN 13:04
PROVIDERS: ATTEND Family Medicine
DX: R31.9 Hematuria, unspecified (principal); R10.9 Unspecified abdominal pain
CPT/HCPCS: 74019

== ENCOUNTER → 2024-09-26 | Outpatient (CLI) | payer MEDICARE, OTHER ==
[2024-09-26 15:31] LABS: Appearance,Urine Clear (Clear); Bilirubin,Urine Negative (Negative); Blood,Urine Negative (Negative); Color,Urine Yellow; Glucose,Urine (UA) Negative (Negative); Ketones,Urine Negative (Negative); Leukocyte Esterase,Urine Negative (Negative); Nitrite,Urine Negative (Negative); Protein,Urine Negative (Negative); Specific Gravity,Urine 1.019 (1.001-1.035); Urobilinogen,Urine <2.0 mg/dL (<2.0)
== END | disposition home or self-care (01) ==
LOC: LABWHC1 14:49
PROVIDERS: ATTEND Family Medicine
DX: R10.9 Unspecified abdominal pain (principal)
CPT/HCPCS: 81003; 87086

== ENCOUNTER → 2024-10-05 | Outpatient (CLI) | payer MEDICARE, OTHER ==
--- NOTE | 2024-10-05 13:20 | XR ---
EXAMINATION TYPE: XR chest 2V DATE OF EXAM: 10/05/2024 CLINICAL INDICATION: Female, 69 years old with history of R91.8 LUNG NODULE, TECHNIQUE: Frontal and lateral views of the chest are obtained. COMPARISON: Chest x-ray April 18, 2024 FINDINGS: There is some chronic parenchymal change bilaterally redemonstrated without suspicious foc al air space opacity, pleural effusion, or pneumothorax seen. Mild cardiomegaly is redemonstrated. The osseous structures are intact. IMPRESSION: Mild cardiomegaly without acute pulmonary process. [facility], , 10/05/2024 1:18 PM
[2024-10-05 18:17] LABS: Basophils # (A) 0.06 X 10*3/uL (0.00-0.10); Basophils % (A) 0.7 %; Eosinophils # (A) 0.18 X 10*3/uL (0.04-0.35); Eosinophils % (A) 2.2 %; HCT 42.2 % (37.2-46.3); HGB 13.9 g/dL (12.0-15.0); Lymphocytes # (A) 2.18 X 10*3/uL (0.90-5.00); Lymphocytes % (A) 26.1 %; MCH 30.5 pg (27.0-32.0); MCHC 32.9 g/dL (32.0-37.0); MCV 92.7 FL (80.0-97.0); Mean Platelet Volume 10.2 FL (9.5-12.2); Monocytes # (A) 0.65 X 10*3/uL (0.20-1.00); Monocytes % (A) 7.8 %; NRBC Per 100 WBC 0 X 10*3/uL (0.00-0.01); Neutrophils # (A) 5.26 X 10*3/uL (1.80-7.70); Neutrophils % (A) 62.8 %; Platelet Count 269 X 10*3/uL (140-440); RBC 4.55 X 10*6/uL (4.10-5.20); RDW 13.1 % (11.5-14.5); WBC 8.36 X 10*3/uL (4.50-10.00)
[2024-10-05 18:52] LABS: Amylase 78 U/L (23-121)
[2024-10-05 18:53] LABS: ALT 17 U/L (8-44); AST 18 U/L (13-35); Albumin 4.4 g/dL (3.8-4.9); Albumin/Globulin Ratio 1.47 Ratio (1.60-3.17); Alkaline Phosphatase 156 U/L (41-126); Calcium 9.3 mg/dL (8.7-10.3); Carbon Dioxide 20.8 mmol/L (21.6-31.8); Chloride 108 mmol/L (96-109); Glucose 118 mg/dL (70-110); Lipase 36 U/L (14-63); Sodium 140 mmol/L (135-145); Total Bilirubin 0.4 mg/dL (0.3-1.2); Total Protein 7.4 g/dL (6.2-8.2)
== END | disposition home or self-care (01) ==
LOC: RADXRMAIN 12:52
PROVIDERS: ATTEND Family Medicine
DX: R05.9 Cough, unspecified (principal); R10.13 Epigastric pain; I51.7 Cardiomegaly
CPT/HCPCS: 71046; 80053; 82150; 83690; 85025

== ENCOUNTER → 2024-10-17 | Outpatient (CLI) | payer MEDICARE, OTHER ==
--- NOTE | 2024-10-17 10:46 | US ---
EXAMINATION TYPE: US kidneys/renal and bladder DATE OF EXAM: 10/17/2024 COMPARISON: 11/23/18 CLINICAL INDICATION: Female, 69 years old with history of R10 ABD PN; intermittent abdominal pain TECHNIQUE: Grayscale imaging of the bilateral kidneys and urinary bladder: FINDINGS: EXAM MEASUREMENTS: Right Kidney: 10.5 x 5.7 x 5.2 cm Left Kidney: 10.7 x 4.5 x 4.5 cm Right Kidney: No hydronephrosis or masses seen Left Kidney: No hydronephrosis or masses seen Bladder: not fully distended, appears wnl Bilateral Jets seen: No There is no evidence for hydronephrosis at this point in time. No nephrolithiasis is seen. No marcial s are identified. The urinary bladder is anechoic. IMPRESSION: Unremarkable study. [facility], , 10/17/2024 10:43 AM
== END | disposition home or self-care (01) ==
LOC: RADUSWWP 10:16
PROVIDERS: ATTEND Family Medicine
DX: R10.9 Unspecified abdominal pain (principal)
CPT/HCPCS: 76770